=== PATIENT | female | born 1940 | race Caucasian/White ===

== ENCOUNTER 2023-11-06 17:19 | Emergency (ER) | payer MEDICARE, SELFPAY ==
[2023-11-06 17:30] VITALS: BP 162/67; PULSE 88; RESP 16; TEMP 36.8; O2SAT 94
[2023-11-06 17:44] LABS: Bilirubin Negative (Negative); Blood Large (Negative); Clarity Cloudy (Clear); Glucose Negative (Negative); Ketones Negative (Negative); Leukocyte Esterase Moderate (Negative); Nitrite Negative (Negative); Specific Gravity >= 1.030 (1.005-1.025); Urobilinogen 0.2 mg/dL (Up to 0.2); pH 5.5 (5-8)
[2023-11-06 17:55] LABS: C & S Indicated? Yes; RBC >50 HPF (0-2); WBC >50 HPF (0-5)
--- OUTSIDE RECORDS SUMMARY | 2023-11-06 18:31 | XMS_ITS | Encounter Summary ---
Author Organization [facility] Address [address] [place] [address] Care Team Providers Care Video Game Script Writer Name Role Phone Anna Dejesus MD Primary Care Provider [phone] Encounter Details Date Type Department Care Team Description 09/11/2018 9:50 AM EDT - 09/11/2018 11:59 PM EDT Hospital Encounter Lab Draw Station [address] [place] [address] Anna Dejesus MD [address] [place] [address] Pure hypercholesterolemi a; Gastro-esophageal reflux disease without esophagitis; Low back pain with right-sided sciatica; Malignant neoplasm of female breast (HCC) Discharge Disposition: Home or Self Care Social History Tobacco Use Types Packs/Day Years Used Date Smoking Tobacco: Never Assessed Sex and Gender Information Value Date Recorded Sex Assigned at Female 05/25/2023 9:21 AM EST Gender Identity Female 05/25/2023 5:41 PM EST Sexual Orientation Not on file Job Start Date Occupation Industry Not on file Not on file Not on file documented as of this encounter Medications at Time of Discharge Medication Sig Dispensed Refills Start Date End Date latanoprost (XALATAN) 0.005 % ophthalmic solution INT 1 DROP IN OU HS 6 10/20/2016 documented as of this encounter Plan of Treatment Upcoming Encounters Date Type Department Care Team Description 01/11/2024 12:45 PM EDT Appointment Department of Radiology and Imaging Services [address] [place], [place] [phone] Dinorah Mas PA-C [address] [place] [phone] 01/18/2024 1:30 PM EDT Appointment Department of Radiology and Imaging Services [address] [place] [address] Dinorah Mas PA-C [address] [place] [phone] 01/18/2024 2:20 PM EDT Office Visit [facility] Cons[facility] [address] [place] [phone] Dinorah Mas PA-C [address] [place] [phone] Rasta Borjas MD [address] [place] [id number] documented as of this encounter Procedures Procedure Name Priority Date/Time Associated Diagnosis Comments COMPREHENSIVE METABOLIC PANEL/FASTING Routine 09/11/2018 8:10 AM EDT Pure hypercholesterolem ia Gastro-esophageal reflux disease without esophagitis Low back pain with right-sided sciatica Malignant neoplasm of female breast (HCC) LIPID PANEL WITH REFLEX TO DIRECT LDL Routine 09/11/2018 8:10 AM EDT Pure hypercholesterolem ia Gastro-esophageal reflux disease without esophagitis Low back pain with right-sided sciatica Malignant neoplasm of female breast (HCC) documented in this encounter Results * (ABNORMAL) Lipid Panel with Reflex to Direct LDL (09/11/2018 8:10 AM EDT) Triglycerides 161(H) <150 mg/dL 09/11/2018 2:20 PM EDT [facility] Cholesterol 213(H) 0 - 200 mg/dL 09/11/2018 2:20 PM EDT [facility] HDL 55 33 - 92 mg/dL 09/11/2018 2:20 PM EDT [facility] LDL (Calculated) 126 50 - 130 mg/dL 09/11/2018 2:20 PM EDT [facility] Comment: Performed at [address] [address] Yusuf Wilson Jr, MD Director KELLIESC [id number] ??CL 0623 09/11/2018 8:10 AM EDT 09/11/2018 9:56 AM EDT Anna Dejesus MD LAB BLOOD ORDERABLES [facility] [address] [facility] (CLIA #[id number]) (CL-0623) [place] [address] * (ABNORMAL) Comprehensive Metabolic Panel/Fasting (09/11/2018 8:10 AM EDT) BUN 19(H) 7 - 17 mg/dL 09/11/2018 2:20 PM EDT [facility] Creatinine, Blood 0.7 0.5 - 1.0 mg/dL 09/11/2018 2:20 PM EDT [facility] Glomerular Filtration Rate, Estimated >60.0 >60.0 09/11/2018 2:20 PM EDT [facility] Comment:MDRD in mL/min/1.73 sq meters. For Americans, multiply by 1.21. Sodium 139 135 - 145 mmol/L 09/11/2018 2:20 PM EDT [facility] Potassium 4.3 3.5 - 5.1 mmol/L 09/11/2018 2:20 PM EDT [facility] Chloride 106 98 - 107 mmol/L 09/11/2018 2:20 PM EDT [facility] Carbon dioxide 31 24 - 32 mmol/L 09/11/2018 2:20 PM EDT [facility] Glucose, Fasting 96 70 - 99 mg/dL 09/11/2018 2:20 PM EDT [facility] Calcium 9.5 8.4 - 10.2 mg/dL 09/11/2018 2:20 PM EDT [facility] Total Protein 6.0(L) 6.4 - 8.5 g/dL 09/11/2018 2:20 PM EDT [facility] Albumin 4.3 3.5 - 5.0 g/dL 09/11/2018 2:20 PM EDT [facility] Alkaline Phosphatase 61 34 - 104 U/L 09/11/2018 2:20 PM EDT [facility] AST (SGOT) 18 5 - 40 U/L 09/11/2018 2:20 PM EDT [facility] ALT (SGPT) 16 7 - 52 U/L 09/11/2018 2:20 PM EDT [facility] Total Bilirubin 0.5 0.3 - 1.0 mg/dL 09/11/2018 2:20 PM EDT [facility] Comment: [place] [address] Yusuf Wilson Jr, MD Director IA [id number] ??CL 0623 09/11/2018 8:10 AM EDT 09/11/2018 9:56 AM EDT Anna Dejesus MD LAB BLOOD ORDERABLES [facility] [address] [facility] (CLIA #[id number]) (CL-[id number]) [place] [address] documented in this encounter Visit Diagnoses Diagnosis Pure hypercholesterolemia Gastro-esophageal reflux disease without esophagitis Low back pain with right-sided sciatica Malignant neoplasm of female breast (HCC) Malignant neoplasm of breast (female), unspecified site documented in this encounter Care Teams Video Game Script Writer Relationship Specialty Start Date End Date Anna Dejesus MD PCP - General Internal Medicine 05/22/15 documented as of this encounter
--- OUTSIDE RECORDS SUMMARY | 2023-11-06 18:31 | XMS_ITS | Encounter Summary ---
Author Organization [facility] Address [address] [place] [address] Care Team Providers Care Roller Helper Name Role Phone Joaquin Ragland MD Primary Care Provider [phone] Reason for Visit * Preauthorization (Routine) - Pending Review Specialty Diagnoses / Procedures Referred By Contac t Referred To Contact Diagnoses Abnormal mammogram of left breast Procedures US Breast Scan Diagnostic Left Limited US Breast Screening Bilateral Joaquin Ragland MD [address] [place] [id number] Referral ID Status Reason Start Date Expiration Date V isits Requested Visits Authorized [id number] Pending Review 06/03/2023 06/02/2024 1 1 Encounter Details Date Type Department Care Team Description 06/06/2023 10:26 AM EST - 06/06/2023 11:59 PM EST Hospital Encounter Department of Radiology and Imaging Services [address] [place], [place] [phone] Joaquin Ragland MD [facility] [address] [place] [address] Discharge Disposition: Home or Self Care Social [...] 1 DROP IN OU HS 6 10/20/2016 omeprazole (PriLOSEC) 20 MG capsule 0 04/19/2023 documented as of this encounter Plan of Treatment Upcoming Encounters Date Type Department Care Team Description 01/11/2024 12:45 PM EDT Appointment Department of Radiology and Imaging Services [address] [place] [phone] Dinorah Mas PA-C [address] [place] [phone] 01/18/2024 1:30 PM EDT Appointment Department of Radiology and Imaging Services [address] [place] [phone] Dinorah Mas PA-C [address] [place] [phone] 01/18/2024 2:20 PM EDT Office Visit [facility] [address] [place] [phone] Dinorah Mas PA-C [address] [place] [phone] Rasta Borjas MD [address] [place] [phone] documented as of this encounter Procedures Procedure Name Priority Date/Time Associated Diagnosis Comments US BREAST SCAN DIAGNOSTIC LEFT LMT Routine 06/06/2023 11:50 AM EST Abnormal mammogram of left breast documented in this encounter Results * (ABNORMAL) US Breast Scan Diagnostic Left Limited (06/06/2023 11:50 AM EST) Anatomical Region Laterality Modality Breast Left Ultrasound 06/06/2023 12:1 2 PM EST Narrative 06/06/2023 12:27 PM EST Session: Separate. Examination: Limited focused ultrasound of the left breast. Indication: Abnormal MRI showing area of enhancement in the mid depth of left breast retroareolar region, at or near the site of parenchymal scar related to prior lumpectomy. Findings: No comparisons. Correlation made to bilateral breast MRI dated 05/28/2023. Limited focused ultrasound of the left breast retroareolar region, periareolar region as well as central part was performed. A linear skin incision is seen in the left periareolar region from prior lumpectomy. Just underneath this, a linear parenchymal scar with sharp posterior acoustic shadowing is seen in the left breast. However, at about 12 to 1:00 position in the periareolar region of left breast, an ill-defined oval-shaped hypoechoic nodular lesion some posterior shadowing is seen in the mid depth, which likely corresponds to MRI enhancement. This could also be part of the scar tissue or could be new adjacent nodularity. This needs further evaluation with ultrasound-guided core biopsy. No evidence of any suspicious or atypical lymph nodes in the left axillary region. Small benign lymph nodes noted with well-defined prominent central fatty notch. Conclusion: 1. A mildly suspicious hypoechoic lesion is seen in the mid depth of left breast at 12 to 1:00 position with posterior acoustic shadowing. 2. This could be part of post lumpectomy scar or a new/adjacent nodularity. Surgical consultation is recommended. Further evaluation with core biopsy is needed. 3. These findings were personally discussed with the patient at the end of this ultrasound study. NOTE: Patient has also been informed about results of this ultrasound study and follow-up, by a patient letter with 'plain language report'. BI-RADS Category 4: Suspicious findings. Biopsy should be considered. A Red message has been communicated to JOAQUIN RAGLAND via the PLAXD Result system on 06/06/2023 12:27 PM, Message ID [id number]. Report reviewed and signed by : Dr. Scooter Schrader MD on 06/06/2023 12:27 PM. Workstation Name - [id number] Joaquin Ragland MD IMG US ORDERABLES documented in this encounter Visit Diagnoses Not on filedocumented in this encounter Care Teams Roller Helper Relationship Specialty Start Date End Date Joaquin Ragland MD PCP - General Internal Medicine 05/22/15 documented as of this encounter
--- OUTSIDE RECORDS SUMMARY | 2023-11-06 18:31 | XMS_ITS | Data Portability ---
Author Organization [place] - [place] [facility], [id number] [place] Address [address] [place] [address] Assessment Encounter Date Assessment Date Assessment LastModified by Organization Details LastModified Time 07/11/2023 07/11/2023 Impression left otitis media. Plan continue oral meds for now including Z-Jose Cortisporin otic suspension for importance of fluids. Start Flonase 2 sprays each nostril daily. Tylenol as needed. Call if no improvement. rsafer Not available 10/08/2023 10:57:59 Plan of Treatment Reminders Order Date Submit Date Provider Last Modified By Organization Details Last Modified Time Details Appointments None recorded. Lab None recorded. Referral None recorded. Procedures None recorded. Surgeries None recorded. Imaging MRI, breast, bilateral, w/wo contrast - left breast pain, constant, chronic, scar from surgery, doesn't tolerate mammogram, usually gets MRI, has h/o left breast cancer 2023 024 [facility] (Department Of Radiology/Christine galen), [address] [place], [address], 4 16:55:22 electrocar diogram 2023 024 imuni In-Office Order, Internal Use Only DO Not Attach Compendium DO Not Attach Compendium, Do Not Delete/merge, [id number] 4 10:20:03 Medication Orders levofloxac in 250 mg tablet 2023 024 jose [facility]/Pharmacy #[id number], [address] [facility], [facility], [place], [address], 4 14:29:46 Zithromax Z-Jose 250 mg tablet 2023 024 AYAAN [facility]/Pharmacy #[id number], [address] [facility], [facility]/, [place], [address], 4 12:43:05 Flonase Allergy Relief 50 mcg/actuat ion nasal spray,susp ension 2023 024 rsafer [facility]/Pharmacy #[id number], [address] [facility], [facility]/, [place], [address], 4 13:05:16 Patient TargetsNo targets recorded. Patient Instructions Encounter Date Encounter Id Patient Instructions Last Modified By Organization Details Last Modified Time 04/29/2023 [id number] well visit, over 65: care instructions imuni Not available 04/29/2023 10:02:36 preventing falls : care instructions imuni Not available 04/29/2023 10:02:36 advance directiv es: care instructions imuni Not available 04/29/2023 10:02:36 To promote good health please follow these recommendations: Diet, Physical Activity and Healthy Weight: -Eat a diet low in trans and saturated fats and high in fiber, fruits and vegetables -Take 5669-4680 mg of calcium through diet and supplements -Engage in regular physical activity and weight bearing exercise -Aim to achieve and maintain ideal body mass index Tobacco and Alcohol Use: -Don't smoke or use other tobacco products -Avoid excessive alcohol intake Medications: -If you use any medications (prescriptions, aliz-crg-mcrzubh, supplements, herbal), always do so as directed by your health care provider -Avoid misuse of any substances in a manner that is not in accordance with appropriate use Safety: -Use seat belts whenever in the car -Use sunscreen regularly to reduce the risk of skin cancer -Test smoke detectors and CO detectors every 6 months -Remove loose rugs and use hand rails on steps and in bath Cognition: -Being intellectually engaged may benefit the brain. Lots of activities can keep your mind active. For example, read books and magazines. Play games. Take or teach a class. Learn a new skill or hobby. Work or volunteer. -People who engage in meaningful activities, like volunteering or hobbies, say they feel happier and healthier. Vaccinations: -Get your yearly influenza vaccine and follow all immunization recommendations outlined in your personal wellness plan. imuni Not available 04/22/2023 16:54:11 2023 [id number] zpack for ear infection tylenol for discomfort use wax softening - murine drops - after completing abx follow-up with office for wax removal after [email or web address] Not available 07/12/2023 16:00:39 Reason for Referral Breast Surgery Referral for Breast lump Referring Physician: Joaquin Ragland, Internal Medicine, Encounter Date: 06/07/2023 Results Created Date Observation Date Name Description Value Unit Range Abnormal Flag LastModifiedBy Organization Detail LastModifiedTime 04/27/19 24 04/28/2023 LIPID PANEL WITH REFLE X TO DIREC T LDL cholesterol, total 207 mg/dL <200 high Not Available [facility] [address], [address], 04/28/2023 22:33:34 04/27/19 24 04/28/2023 LIPID PANEL WITH REFLE X TO DIREC T LDL HDL cholesterol 61 mg/dL > or = 50 normal Not Available [facility] [address], [place], [address], 04/28/2023 22:33:34 04/27/19 24 04/28/2023 LIPID PANEL WITH REFLE X TO DIREC T LDL triglyceride s 167 mg/dL <150 high Not Available [facility] [address] [place], [address], 04/28/2023 22:33:34 04/27/19 24 04/28/2023 LIPID PANEL WITH REFLE X TO DIREC T LDL LDL-choleste rol 118 mg/dL _(rachel c) high Not Available [facility] [address], [place], [address], 04/28/2023 22:33:34 04/27/19 24 04/28/2023 LIPID PANEL WITH REFLE X TO DIREC T LDL chol/HDLC ratio 3.4 (calc ) <5.0 normal Not Available [facility] [address], [place], [address], 04/28/2023 22:33:34 04/27/19 24 04/28/2023 LIPID PANEL WITH REFLE X TO DIREC T LDL non HDL cholesterol 146 mg/dL _(rachel c) <130 high Not Available [facility] [address], [place], [address], 04/28/2023 22:33:34 04/27/19 24 04/28/2023 COMPR EHENS RODERICK METAB OLIC PANEL glucose 98 mg/dL 65-99 normal Not Available [facility] [address], [place], [address], 04/28/2023 22:33:35 04/27/19 24 04/28/2023 COMPR EHENS RODERICK METAB OLIC PANEL urea nitrogen (BUN) 13 mg/dL 7-25 normal Not Available [facility] [address], [place], [address], 04/28/2023 22:33:35 04/27/19 24 04/28/2023 COMPR EHENS RODERICK METAB OLIC PANEL creatinine 0.67 mg/dL 0.60-0 .95 normal Not Available [facility] [address], [place], [address], 04/28/2023 22:33:35 04/27/19 24 04/28/2023 COMPR EHENS RODERICK METAB OLIC PANEL eGFR 87 mL/mi n/1.7 3m2 > or = 60 normal Not Available [facility] [address], [place], [address], 04/28/2023 22:33:35 04/27/19 24 04/28/2023 COMPR EHENS RODERICK METAB OLIC PANEL BUN/creatini ne ratio SEE NOTE: (calc ) 6-22 Not Available [facility] [address], [place], [address], 04/28/2023 22:33:35 04/27/19 24 04/28/2023 COMPR EHENS RODERICK METAB OLIC PANEL sodium 140 mmol/ L 135-14 6 normal Not Available [facility] [address], [place], [address], 04/28/2023 22:33:35 04/27/19 24 04/28/2023 COMPR EHENS RODERICK METAB OLIC PANEL potassium 4.2 mmol/ L 3.5-5. 3 normal Not Available [facility] [address], [place], [address], 04/28/2023 22:33:35 04/27/19 24 04/28/2023 COMPR EHENS RODERICK METAB OLIC PANEL chloride 103 mmol/ L 98-110 normal Not Available [facility] [address], [place], [address], 04/28/2023 22:33:35 04/27/19 24 04/28/2023 COMPR EHENS RODERICK METAB OLIC PANEL carbon dioxide 27 mmol/ L 20-32 normal Not Available [facility] [address], [place], [address], 04/28/2023 22:33:35 04/27/19 24 04/28/2023 COMPR EHENS RODERICK METAB OLIC PANEL calcium 9.4 mg/dL 8.6-10 .4 normal Not Available [facility] [address], [place], [address], 04/28/2023 22:33:35 04/27/19 24 04/28/2023 COMPR EHENS RODERICK METAB OLIC PANEL protein, total 6.8 g/dL 6.1-8. 1 normal Not Available [facility] [address], [place], [address], 04/28/2023 22:33:35 04/27/19 24 04/28/2023 COMPR EHENS RODERICK METAB OLIC PANEL albumin 4.3 g/dL 3.6-5. 1 normal Not Available [facility] [address], [place], [address], 04/28/2023 22:33:35 04/27/19 24 04/28/2023 COMPR EHENS RODERICK METAB OLIC PANEL globulin 2.5 g/dL_ (calc ) 1.9-3. 7 normal Not Available [facility] [address], [place], [address], 04/28/2023 22:33:35 04/27/19 24 04/28/2023 COMPR EHENS RODERICK METAB OLIC PANEL albumin/glob ulin ratio 1.7 (calc ) 1.0-2. 5 normal Not Available [facility] [address], [place], [address], 04/28/2023 22:33:35 04/27/19 24 04/28/2023 COMPR EHENS RODERICK METAB OLIC PANEL bilirubin, total 0.4 mg/dL 0.2-1. 2 normal Not Available [facility] [address], [place], [address], 04/28/2023 22:33:35 04/27/19 24 04/28/2023 COMPR EHENS RODERICK METAB OLIC PANEL alkaline phosphatase 69 U/L 37-153 normal Not Available [facility] [address], [place], [address], 04/28/2023 22:33:35 04/27/19 24 04/28/2023 COMPR EHENS RODERICK METAB OLIC PANEL AST 15 U/L 10-35 normal Not Available [facility] [place] [facility] [address], [place], [address], 04/28/2023 22:33:35 04/27/19 24 04/28/2023 COMPR EHENS RODERICK METAB OLIC PANEL ALT 17 U/L 6-29 normal Not Available [facility] [place] [facility] [address], [place], [address], 04/28/2023 22:33:35 04/27/19 24 04/28/2023 URINA LYSIS , COMPL ETE W/REF CATALINO TO CULTU RE color YELLOW yellow normal Not Available [facility] [place] [facility] [address], [place], [address], 04/28/2023 22:33:36 04/27/19 24 04/28/2023 URINA LYSIS , COMPL ETE W/REF CATALINO TO CULTU RE appearance CLOUDY clear abnormal Not Available [facility] [place] [facility] [address], [place], [address], 04/28/2023 22:33:36 04/27/19 24 04/28/2023 URINA LYSIS , COMPL ETE W/REF CATALINO TO CULTU RE specific gravity 1.013 1.001- 1.035 normal Not Available [facility] [place] [facility] [address], [place], [address], 04/28/2023 22:33:36 04/27/19 24 04/28/2023 URINA LYSIS , COMPL ETE W/REF CATALINO TO CULTU RE pH 6.0 5.0-8. 0 normal Not Available [facility] [place] [facility] [address], [place], [address], 04/28/2023 22:33:36 04/27/19 24 04/28/2023 URINA LYSIS , COMPL ETE W/REF CATALINO TO CULTU RE glucose NEGATI VE negati ve normal Not Available [facility] [place] [facility] [address], [place], [address], 04/28/2023 22:33:36 04/27/19 24 04/28/2023 URINA LYSIS , COMPL ETE W/REF CATALINO TO CULTU RE bilirubin NEGATI VE negati ve normal Not Available [facility] [address], [place], [address], 04/28/2023 22:33:36 04/27/19 24 04/28/2023 URINA LYSIS , COMPL ETE W/REF CATALINO TO CULTU RE ketones NEGATI VE negati ve normal Not Available [facility] [place] [facility] [address], [place], [address], 04/28/2023 22:33:36 04/27/19 24 04/28/2023 URINA LYSIS , COMPL ETE W/REF CATALINO TO CULTU RE occult blood NEGATI VE negati ve normal Not Available [facility] [place] [facility] [address], [place], [address], 04/28/2023 22:33:36 04/27/19 24 04/28/2023 URINA LYSIS , COMPL ETE W/REF CATALINO TO CULTU RE protein NEGATI VE negati ve normal Not Available [facility] [place] [facility] [address], [place], [address], 04/28/2023 22:33:36 04/27/19 24 04/28/2023 URINA LYSIS , COMPL ETE W/REF CATALINO TO CULTU RE nitrite NEGATI VE negati ve normal Not Available [facility] [address], [place], [address], 04/28/2023 22:33:36 04/27/19 24 04/28/2023 URINA LYSIS , COMPL ETE W/REF CATALINO TO CULTU RE leukocyte esterase 3+ negati ve abnormal Not Available [facility] [place] [facility] [address], [place], [address], 04/28/2023 22:33:36 04/27/19 24 04/28/2023 URINA LYSIS , COMPL ETE W/REF CATALINO TO CULTU RE WBC 20-40 /hpf < or = 5 abnormal Not Available [facility] [place] [facility] [address], [place], [address], 04/28/2023 22:33:36 04/27/19 24 04/28/2023 URINA LYSIS , COMPL ETE W/REF CATALINO TO CULTU RE RBC NONE SEEN /hpf < or = 2 normal Not Available [facility] [place] [facility] [address], [place], [address], 04/28/2023 22:33:36 04/27/19 24 04/28/2023 URINA LYSIS , COMPL ETE W/REF CATALINO TO CULTU RE squamous epithelial cells 10-20 /hpf < or = 5 abnormal Not Available [facility] [place] [facility] [address], [place], [address], 04/28/2023 22:33:36 04/27/19 24 04/28/2023 URINA LYSIS , COMPL ETE W/REF CATALINO TO CULTU RE bacteria FEW /hpf none seen abnormal Not Available [facility] [place] [facility] [address], [place], [address], 04/28/2023 22:33:36 04/27/19 24 04/28/2023 URINA LYSIS , COMPL ETE W/REF CATALINO TO CULTU RE hyaline cast NONE SEEN /lpf none seen normal Not Available [facility] [place] [facility] [address] [place], [place], [address], 04/28/2023 22:33:36 04/27/19 24 04/28/2023 URINA LYSIS , COMPL ETE W/REF CATALINO TO CULTU RE note Not Available [facility] [place] [facility] [address] [place], [place], [address], 04/28/2023 22:33:36 04/27/19 24 04/28/2023 REFLE XIVE URINE CULTU RE reflexive urine culture Not Available [facility] [place] [facility] [address] [place], [place], [address], 04/28/2023 22:33:36 04/27/19 24 04/28/2023 CBC (INCL UDES DIFF/ PLT) white blood cell count 4.7 thous and/u L 3.8-10 .8 normal Not Available [facility] [place] [facility] [address] [place], [place], [address], 04/28/2023 22:33:36 04/27/19 24 04/28/2023 CBC (INCL UDES DIFF/ PLT) red blood cell count 4.97 lazaro on/uL 3.80-5 .10 normal Not Available [facility] [place] [facility] [address] [place], [place], [address], 04/28/2023 22:33:36 04/27/19 24 04/28/2023 CBC (INCL UDES DIFF/ PLT) hemoglobin 14.2 g/dL 11.7-1 5.5 normal Not Available [facility] [place] [facility] [address] [place], [place], [address], 04/28/2023 22:33:36 04/27/19 24 04/28/2023 CBC (INCL UDES DIFF/ PLT) hematocrit 42.2 % 35.0-4 5.0 normal Not Available [facility] [place] [facility] [address], [place], [address], 04/28/2023 22:33:36 04/27/19 24 04/28/2023 CBC (INCL UDES DIFF/ PLT) MCV 84.9 fL 80.0-1 00.0 normal Not Available [facility] [place] [facility] [address], [place], [address], 04/28/2023 22:33:36 04/27/19 24 04/28/2023 CBC (INCL UDES DIFF/ PLT) MCH 28.6 pg 27.0-3 3.0 normal Not Available [facility] [place] [facility] [address], [place], [address], 04/28/2023 22:33:36 04/27/19 24 04/28/2023 CBC (INCL UDES DIFF/ PLT) MCHC 33.6 g/dL 32.0-3 6.0 normal Not Available [facility] [place] [facility] [address], [place], [address], 04/28/2023 22:33:36 04/27/19 24 04/28/2023 CBC (INCL UDES DIFF/ PLT) RDW 12.8 % 11.0-1 5.0 normal Not Available [facility] [place] [facility] [address], [place], [address], 04/28/2023 22:33:36 04/27/19 24 04/28/2023 CBC (INCL UDES DIFF/ PLT) platelet count 308 thous and/u L 140-40 0 normal Not Available [facility] [place] [facility] [address], [place], [address], 04/28/2023 22:33:36 04/27/19 24 04/28/2023 CBC (INCL UDES DIFF/ PLT) MPV 10.2 fL 7.5-12 .5 normal Not Available [facility] [place] [facility] [address], [place], [address], 04/28/2023 22:33:36 04/27/19 24 04/28/2023 CBC (INCL UDES DIFF/ PLT) absolute neutrophils 1974 cells /uL 1500-7 800 normal Not Available [facility] [place] [facility] [address], [place], [address], 04/28/2023 22:33:36 04/27/19 24 04/28/2023 CBC (INCL UDES DIFF/ PLT) absolute lymphocytes 1810 cells /uL 850-39 00 normal Not Available [facility] [address], [place], [address], 04/28/2023 22:33:36 04/27/19 24 04/28/2023 CBC (INCL UDES DIFF/ PLT) absolute monocytes 494 cells /uL 200-95 0 normal Not Available [facility] [place] [facility] [address], [place], [address], 04/28/2023 22:33:36 04/27/19 24 04/28/2023 CBC (INCL UDES DIFF/ PLT) absolute eosinophils 343 cells /uL 15-500 normal Not Available [facility] [address], [place], [address], 04/28/2023 22:33:36 04/27/19 24 04/28/2023 CBC (INCL UDES DIFF/ PLT) absolute basophils 80 cells /uL 0-200 normal Not Available [facility] [address], [place], [address], 04/28/2023 22:33:36 04/27/19 24 04/28/2023 CBC (INCL UDES DIFF/ PLT) neutrophils 42 % normal Not Available [facility] [address], [place], [address], 04/28/2023 22:33:36 04/27/19 24 04/28/2023 CBC (INCL UDES DIFF/ PLT) lymphocytes 38.5 % normal Not Available [facility] [place] [facility] [address], [place], [address], 04/28/2023 22:33:36 04/27/19 24 04/28/2023 CBC (INCL UDES DIFF/ PLT) monocytes 10.5 % normal Not Available [facility] [place] [facility] [address], [place], [address], 04/28/2023 22:33:36 04/27/19 24 04/28/2023 CBC (INCL UDES DIFF/ PLT) eosinophils 7.3 % normal Not Available [facility] [place] [facility] [address], [place], [address], 04/28/2023 22:33:36 04/27/19 24 04/28/2023 CBC (INCL UDES DIFF/ PLT) basophils 1.7 % normal Not Available [facility] [place] [facility] [address], [place], [address], 04/28/2023 22:33:36 04/27/19 24 04/28/2023 CULTU RE, URINE , ROUTI NE culture, urine, routine SEE NOTE Not Available [facility] [place] [facility] [address], [place], [address], 04/28/2023 22:33:37 04/29/19 marli hernandez am No observ ation record ed. imuni In-Office Order Internal Use Only DO Not Attach Compendium DO Not Attach Compendium, Do Not Delete/merge, [id number] 04/29/2023 09:26:54 06/02/19 24 05/28/2023 MRI breas t bilat eral with and witho ut IV contr ast with CAD EXAM: MRI BREAST BILATE RAL WITH AND WITHOU T CONTRA ST IV CONTRA ST WITH CAD EXAM HISTOR Y: Ricardo phillips with a histor y of left breast cancer status post breast conser vation surger y. Ricardo phillips report s left breast pain as indica javed by the referr ing clinic simone's office . No recent mammog anival are availa ble. Encoun ter for other screen ing for malign ant neopla sm of breast ,Masto dynia COMPAR TERELL: Bilate ral breast MRI dated 022, 2019 perfor med at [facility] TECHNI QUE: Techni que: Sagitt al T1 and T2 weight ed images were obtain ed throug h each breast . DWI (B500- 1000) Axial T1-genesis ghted gradie nt echo sequen rodrigo were perfor med before and after admini strati on of gadoli nium in multip le phases and subtra cted images were obtain ed. Kineti cs analys is was perfor med using CAD stream softwa re. Multip lanar reform atted images were create d and analyz ed on a workst ation. CONTRA ST AGENT: 14 cc of intrav enous ratna can were admini stered withou t incide nt. FINDIN GS: There are scatte red fibrog landul ar densit ies (appro ximate ly 25-50% glandu lar). There is motion artifa ct result ing in misreg istrat ion on the postco ntrast sequen rodrigo. RIGHT BREAST : There is minima l backgr ound parenc hymal enhanc ement. No enhanc ing mass, randi ectura l distor tion, or suspic ious area of enhanc ement is identi fied with Type II or Type III kineti cs. The nipple and skin appear normal . There is no axilla ry adenop athy. LEFT BREAST : There is intima l backgr ound parenc hymal enhanc ement. Again seen are postsu rgical change s at 12:00. Compar ed to prior images , there appear s to be increa sed enhanc ement associ ated with the surgic al scar just above the nipple at 12:00. This enhanc ement measur es 1.4 x 1.7 cm. No associ ated suspic ious kineti cs. There is no other abnorm al enhanc ement within the left breast . The nipple and skin appear normal . There is no axilla ry adenop athy. The imaged portio ns of the chest and abdome n are unrema rkable . IMPRES GAYATRI: Right Breast : BI-RAD S Catego ry 2. Benign . No enhanc ing mass, randi ectura l distor tion, or suspic ious area of enhanc ement. Left Breast : BI-RAD S Catego ry 4. Suspic ious abnorm ality. Increa sed enhanc ement associ ated with the surgic al scar just above the nipple at 12:00 compar ed to prior availa ble images . Given the misreg istrat ion artifa ct on the postco ntrast sequen rodrigo, it is possib le this enhanc ement may be artifa ctual. RECOMM ENDATI ON: Consid er focuse d ultras ound of the upper left breast at 12:00 at the surgic al scar for furthe r evalua tion. Correl ation with mammog efren would be helpfu l. A follow -up bilate ral breast MRI is recomm ended in 6 months if no suspic ious abnorm ality is identi fied on ultras ound or mammog efren to correl ate with the enhanc ement. Report review ed and signed by : Dr. Eleno Pryor MD on 024 10:53 AM. Workst ation Name - [facility] 14cc dec 07 2025 [id number] ARRAY( [id number]) [facility] (Imaging) [address] [place] [address], [address], 06/02/2023 13:38:14 06/06/19 24 06/06/2023 US breas t scan diagn ostic left lmt Sessio n: Separa te. Examin ation: Limite d focuse d ultras ound of the left breast . Indica tion: Abnorm al MRI showin g area of enhanc ement in the mid depth of left breast retroa reolar region , at or near the site of parenc hymal scar relate d to prior lumpec zofia. Findin gs: No compar isons. Correl ation made to bilate ral breast MRI dated 024. Limite d focuse d ultras ound of the left breast retroa reolar region , periar eolar region as well as centra l part was perfor med. A linear skin incisi on is seen in the left periar eolar region from prior lumpec zofia. Just undern eath this, a linear parenc hymal scar with sharp material handling supervisor ior acoust ic shadow ing is seen in the left breast . Howeve r, at about 12 to 1:00 positi on in the periar eolar region of left breast , an ill-de fined oval-s haped hypoec hoic nodula r lesion some material handling supervisor ior shadow ing is seen in the mid depth, which likely corres ponds to MRI enhanc ement. This could also be part of the scar tissue or could be new adjace nt nodula rity. This needs furthe r evalua tion with ultras ound-g uided core biopsy . No eviden ce of any suspic ious or atypic al lymph nodes in the left axilla ry region . Small benign lymph nodes noted with well-d efined promin ent centra l fatty notch. Conclu gayatri: 1. A mildly suspic ious hypoec hoic lesion is seen in the mid depth of left breast at 12 to 1:00 positi on with material handling supervisor ior acoust ic shadow ing. 2. This could be part of post lumpec zofia scar or a new/ad jacent nodula rity. Surgic al consul tation is recomm ended. Furthe r evalua tion with core biopsy is needed . 3. These findin gs were person ally discus sed with the ricardo phillips at the end of this ultras ound study. NOTE: Ricardo phillips has also been inform ed about result s of this ultras ound study and follow -up, by a ricardo phillips letter with 'delroy sauceda ge report '. BI-RAD S Catego ry 4: Suspic ious findin gs. Biopsy should be consid ered. Sarah pratt has been commun icated to JOAQUIN RAGLAND via the [employer] system on 12:27 PM, [place] e [place] [id number]. Report review ed and signed by : Dr. David Schrader MD on 12:27 PM. Workst ation Name - [id number] [facility] (Imaging) [address] [facility], [place], [address], 06/07/2023 08:05:41 Result Notes None recorded. Problems Name Status Onset Date Resolution Date Notes Provider Name and Address Organization Details Recorded Time Glaucoma Active 023 Tawny Lafontain e null, [place] - [facility] 3 16:32:37 Cataract Active 023 Tawny Lafontain e null, [place] - [facility] 3 16:32:46 Gastroesophageal reflux disease Active 023 Tawny Lafontain e null, [place] - [facility] 3 16:32:56 Hypercholesterolemia Active 023 Tawny Lafontain e null, CT - [facility] 3 16:33:18 Acute urinary tract infection Active 024 Joaquin Ragland MD [address] [place] [address], [address] [place] [address], [phone], [place] [facility] 4 10:00:39 Caregiver stress syndrome Active 024 Joaquin Ragland MD [address] [place] [address], [address] [place] [address], [phone], [place] - [facility] 4 10:27:20 Malignant neoplasm of female breast Active 024 Joaquin Ragland MD [address] [place] [address], [address] [place] [address], [phone], [place] - [facility] 4 13:39:06 Mammography assessment (Category 4C) - high suspicion of malignancy Active 024 Joaquin Ragland MD [address] [place] [address], [address] [place] [address], [place], [phone], [place] [facility] 4 13:39:50 Breast lump Active 024 Joaquin Ragland MD [address] [place] [address], [address] [place] [address], [place], [phone], [place] - [facility] 4 08:06:07 Pain of ear Active 024 Joaquin Ragland MD [address] [place] [address], [address] [place] [address], [place], [phone], [place] - [facility] 4 16:32:39 Problem Notes None recorded. Procedures Surgical History Date Name Laterality Status Provider Name and Address Organization Details Recorded Time 04/29/19 24 Advance Care Planning Consultation completed Joaquin Ragland MD [address] [place] [address], [address] [place] [address], [phone], [place] - [facility] 04/22/2023 16:54:11 04/29/19 24 AWV - safety evaluation completed Joaquin Ragland MD [address] [place] [address], [phone], [place] - [facility] 04/22/2023 16:54:11 04/29/19 24 AWV - female prevention plan completed Joaquin Ragland MD [address] [place] [address], [address] [place] [address], [phone], [place] CT - [facility] 04/22/2023 16:54:11 04/29/19 22 Date of Last Mammogram completed Joaquin Ragland MD [address] [place] [address], [phone], [place] - [facility] 04/29/2023 09:50:49 08/25/19 17 Most Recent Bone Density completed Tawny shipley, [facility] - [facility] 02/17/2023 16:30:12 lumpectomy of breast completed Joaquin Ragland MD [address] [place] [address], [phone], [place] - [facility] 04/29/2023 09:45:30 Imaging Results Imaging Date Name Status LastModified by Organization Details LastModified Time 04/29/2023 electrocardiogram completed imuni In-Offi ce Order Internal Use Only DO Not Attach Compendium DO Not Attach Compendium, Do Not Delete/merge, [id number] 04/29/2023 09:26:54 05/28/2023 MRI breast bilateral with and without IV contrast with CAD completed [facility] (Imaging) [address] [place], [address], 06/02/2023 13:38:14 06/06/2023 US breast scan diagnostic left lmt completed [facility] ([facility]) [address] [place], [address], 06/07/2023 08:05:41 Procedure Notes None recorded. Medical Equipment None Reported. Allergies Allergen ID Allergen Name Allergen Category Reaction Reaction Severity Criticality Documentation Date Start Date Code Code System Note Provider Name and Address Organization Details Recorded Time [id number] penicilli n V Not available Not available Not available Not available 04/29/2023 7984 RxNorm Karena [facility], [place] - [facility] 09:20:02 Medications Name Sig Start Date Stop Date Status Note LastModified by Organization Details LastModified Time celecoxib 200 mg capsule TAKE 1 TAB BY MOUTH TWICE A DAY.. TAKE WITH FOOD active Not Available Not Available No t Available latanoprost 0.005 % eye drops INT 1 DROP IN OU HS 2016 active Not Available Not Available Not Avai lable doxycycline hyclate 100 mg capsule TAKE 1 CAPSULE BY MOUTH TWICE A DAY FOR 10 DAYS active Not Available Not Available No t Available Zithromax Z-Jose 250 mg tablet TAKE 2 TABLETS (500 MG) BY ORAL ROUTE ONCE DAILY FOR 1 DAY THEN 1 TABLET (250 MG) BY ORAL ROUTE ONCE DAILY FOR 4 DAYS 07/10 completed Not Available Not Available Not Available acetaminoph en 300 mg-codeine 30 mg tablet TAKE 1 TABLET BY MOUTH EVERY 6 HOURS NEEDED FOR PAIN active Not Available Not Available No t Available levofloxaci n 250 mg tablet TAKE 1 TABLET BY MOUTH EVERY DAY 07/05 completed Not Available Not Available Not Available ofloxacin 0.3 % ear drops PLACE 5 DROPS INTO LEFT EAR TWICE A DAY FOR 10 DAYS active Not Available Not Available No t Available omeprazole 20 mg capsule,del ayed release TAKE 1 CAPSULE BY MOUTH EVERY DAY active Not Available Not Available No t Available levofloxaci n 500 mg tablet TAKE 1 TABLET BY MOUTH EVERY DAY active Not Available Not Available No t Available neomycin-po lymyxin-hyd rocort 3.5 mg-10,000 unit/mL-1 % ear drops,susp INSTILL 4 DROPS INTO AFFECTED EAR(S) 3 TIMES A DAY active Not Available Not Available No t Available memantine 10 mg tablet active Not Available Not Available Not Available Flonase Allergy Relief 50 mcg/actuati on nasal spray,suspe nsion [facility] 2 sprays every day by intranasa l route. 2023 active Not Available Not Available Not Avai lable Vitals Date Recorded Body height Body mass index (BMI) Body weight Respiratory rate Heart rate Oxygen saturation Oxygen saturation in Arterial blood by Pulse oximetry Body temperature Provider Name and Address Organization Details Last Updated DateTime 4 158.12 cm 23.8 kg/m2 16206.6 g 17 /min 81 /min 98 % 98 % 97.6 [degF] Karena Phoenix [facility] 4 09:19:36 Date Recorded Body height Body mass index (BMI) Body weight Respiratory rate Heart rate Oxygen saturation Oxygen saturation in Arterial blood by Pulse oximetry Body temperature Systolic blood pressure Diastolic blood pressure Provider Name and Address Organization Details Last Updated DateTime 4 158.12 cm 24.7 kg/m2 95488.5 6 g 17 /min 91 /min 96 % 96 % 98.1 [degF] 114 mm[Hg] 70 mm[Hg] Karena Phoenix [facility] 4 14:30:36 Date Recorded Body height Body mass index (BMI) Body weight Heart rate Oxygen saturation Oxygen saturation in Arterial blood by Pulse oximetry Provider Name and Address Organization Details Last Updated DateTime 4 158.12 cm 24.7 kg/m2 72727.5 6 g 78 /min 98 % 98 % Tawny pratt [facility] 4 12:42:04 Date Recorded Systolic blood pressure Diastolic blood pressure Provider Name and Address Organization Details Last Updated DateTime 07/11/2023 140 mm[Hg] 84 mm[Hg] Yordy Waters MD [address] [place] [address], [address] Floor, [place], [address], CT - [facility] 07/11/2023 12:51:53 Social History Question Answer Notes LastModified by Organizat ion Details LastModified Time Tobacco Smoking Status Never Smoker Joaquin Ragland MD [address] [facility], [address], [place], [address], [place] - [facility] 04/29/2023 09:43:56 Do You Have An Advance Directive? Yes Information not available 04/29/2023 What Is Your Level Of Alcohol Consumption? None Information not available 04/29/2023 Are You Blind Or Do You Have Difficulty Seeing? No Information not available 04/29/2023 Are You A Caregiver? Yes Information not available 04/29/2023 Are You Currently Employed? No Information not available 04/29/2023 Are You Deaf Or Do You Have Serious Difficulty Hearing? No Information not available 04/29/2023 What Type Of Diet Are You Following? REGULAR Information not available 04/29/2023 What Is Your Relationship Status? Information not available 04/29/2023 Sex: Unknown Functional Status Question Answer Note LastModified by Organizat ion Details LastModified Time Do you have difficulty walking or climbing stairs? No Information not available 04/29/2023 Do you have transportation difficulties? No Information not available 04/29/2023 Are you able to walk? YESWOREST Information not available 04/29/2023 Do you have difficulty doing errands alone? No Information not available 04/29/2023 Are you able to care for yourself? Yes Information n ot available 04/29/2023 Do you have difficulty dressing or bathing? No Information not available 04/29/2023 What is your exercise level? Occasional Information not available 04/29/2023 Mental Status Question Answer Note LastModified by Organization D etails LastModified Time Do you have difficulty concentrating, remembering or making decisions? No Information no t available 04/29/2023 Family History Nothing Reported. Medical History No medical history recorded. Gynecological History Statement/Question Response Date of Last Mammogram 04/29/2021 Most Recent Bone Density 08/24/2016 Obstetrics History GPAL:G 0 P 0 0 0 0 Immunizations Vaccine Type Date Status Provider Name and Address Organization Details Recorded Time pneumococcal polysaccharide PPV23 04/02/2014 completed Karena Hardrick null, CT - [facility] 04/29/2023 09:15:59 zoster recombinant 03/05/2015 completed Karena Hardrick null, CT - [facility] 04/29/2023 09:15:59 Influenza, adjuvanted, trivalent, PF 01/19/2017 completed Karena Hardrick null, CT - [facility] 04/29/2023 09:15:59 Influenza, MDCK, quadrivalent, PF 01/25/2022 completed Karena Hardrick null, CT - [facility] 04/29/2023 09:15:59 zoster recombinant 12/31/2019 completed Karena Hardrick null, CT - CT [facility] 04/29/2023 09:15:59 zoster recombinant 02/29/2020 completed Karena Hardrick null, CT - CT [facility] 04/29/2023 09:15:59 Influenza, adjuvanted, quadrivalent, PF 01/18/2023 completed Karena Hardrick null, CT - CT [facility] 04/29/2023 09:15:59 COVID-19, mRNA, LNP-S, PF, 100 mcg/0.5mL dose or 50 mcg/0.25mL dose 07/02/2020 completed Karena Hardrick null, CT - CT [facility] 04/29/2023 09:15:59 COVID-19, mRNA, LNP-S, PF, 100 mcg/0.5mL dose or 50 mcg/0.25mL dose 04/07/2021 completed Karena Hardrick null, CT - CT [facility] 04/29/2023 09:15:59 Pneumococcal conjugate PCV 13 11/23/2018 completed Karena Valdesrick null, CT - CT [facility] 04/29/2023 09:15:59 zoster live 06/27/2015 completed Karena Valdesrick null, CT - CT [facility] 04/29/2023 09:15:59 Influenza, split virus, trivalent, PF 04/30/2016 completed Karena Phoenix null, [facility] - [facility] 04/29/2023 09:15:59 Influenza, split virus, trivalent, PF 12/31/2019 completed Karena Phoenix null, CT - [facility] 04/29/2023 09:15:59 Past Encounters Encounter ID Performer Location Encounter Start Date Encounter Closed Date Diagnosis/Indication Diagnosis SNOMED-CT Code [id number] Joaquin Ragland MD [facility]I M[facility] [place] [address] 04/29/2023 09:07:54 04/29/2023 10:09:28 Adult health examination 318086349 Screening for malignant neoplasm of breast 799316243 Screening for cardiovascular system disease 389603464 Gastroesop hageal reflux disease 244903608 Hypercholesterolemia 136 80027 Glaucoma 52889412 Acute urin adrián tract infection 824503188 Body mass index 20-24 - normal 234226535 Caregiver stress syndrome 675982605 [id number] Maria Dolores Castillo MD [facility] [place] [address] 2023 13:55:34 2023 15:32:56 Acute left otitis media 192587138 [id number] Yordy Waters MD [facility] M[facility] [place] [address] 07/11/2023 12:37:44 07/11/2023 13:35:25 Acute left otitis media 352807886 Health Concerns Section Related Observation LastModified by Organization Detai ls LastModified Time None Recorded Concern Status LastModified by Organization Details LastModified Time None Recorded Advance Directives Directive Y: Payers Encounter Date Sequence Insurance Name Policy Number Policy Otto Covered Member ID Otto Member ID Guarantor Name 04/29/2023 1 [employer] (MEDICARE REPLACEMENT/A DVANTAGE - PPO) Joyce Flanagan [id number] Joyce Flanagan 2023 1 [employer] (MEDICARE REPLACEMENT/A DVANTAGE - PPO) Joyce Flanagan [id number] Joyce Flanagan 07/11/2023 1 [employer] (MEDICARE REPLACEMENT/A DVANTAGE - PPO) Joyce Flanagan [id number] Joyce Flanagan Notes Date Note Type Note Provider Name and Address Organization Details Recorded Time 04/29/2023 text/html HPI Notes: Medic are Annual Wellness Visit Health Risk Assessment Reported by patient. Diet and Nutrition: healthy diet; no dental changes; discussed portion control; discussed diet improvement; discussed maintaining calcium balance Medication Review: has medications at home and can afford medications; taking medications as prescribed and directed Physical Activity: exercises on a regular basis; good physical condition Current level of pain Mild pain: 04/20 to 05/21 behavioral history denies use of tobacco or any other nicotine delivery product (i.e., e-cigarette, vaping or chewing tobacco) in past 12 months; denies alcohol use or practices limited (social only) alcohol use; denies drug use, including marijuana, cocaine or crack, heroin, methamphetamine (crystal meth), hallucinogens, ecstasy/MDMA Depression Risk: Assessed by PHQ 2/9, see results Orientation: no disorientation to time; no disorientation to date; no disorientation to place Concentration and Memory: no memory lapses or loss Speech/Motor difficulties: no difficulty expressing formulated concepts Hearing: no loss of hearing Vision: no vision problems Activities of Daily Living: able to bathe with limited or no assistance; able to contol urination and bowels; able to dress with limited or no assistance; able to groom with limited or no assistance; able to feed self with limited or no assistance; able to get out of chair or bed with limited or no assistance; able to toilet with limited or no assistance Instrumental Activities of Daily Living: able to do house work with limited or no assistance; able to grocery shop with limited or no assistance; able to manage medications with limited or no assistance; able to manage money with limited or no assistance; able to prepare meals with limited or no assistance; able to use the phone with limited or no assistance Falls Risk Assessment: Assessed by SALTY Fall Risk, see result Home Safety: use of seatbelts; no vision or hearing loss while driving; no fire arms; has hand bars in the bathroom/shower; good lighting in the home He feels well just very stressed lately due to her 's memory loss. She stays physically active and busy. She did notice increased frequency and urgency lately and her urine had a lot og WBC. The rest of her labs were fine. She still has left breast pain since she had surgery for breast cancer several years ago. She received the flu shot but doesn't want to Covid vaccine anymore. Joaquin Ragland MD [address] [place] [address], [address] [place] [address], [phone], [facility] 04/29/2023 10:29:11 2023 text/html HPI Notes: 82 yo female presents with c/o L ear pain. Pt states ear pain started 2 days ago. Ear feels blocked - cannot hear well out of it. Ear was itchy, pt tried to clean it with a q tip and she used aleve 2 days prior. Pain radiates down to left neck to superficial cervical lymph node. Pt took a decongestant last night with no relief. Maria Dolores Castillo MD [address] [place] [address], [phone], [facility] 07/12/2023 16:01:01 07/11/2023 text/html HPI Notes: Chong goodson is an 83-year-old female here to be complaining of ongoing left ear ache. She was seen a couple of days ago by Dr. Castillo and was prescribed oral azithromycin which does not seem to have helped thus far after taking it for 3 days. An Rx was called in for Cortisporin otic suspension without much help so far. She denies any fever or chills. She denies any pressure congestion sensation in her left ear. Also d there is no difficulty swallowing. Denies any sore throat. No sinus discomfort. Ecreased hearing. Yordy Waters MD [address] [place] [address], [address] [place] [address], [place], [phone], [facility] 10/08/2023 10:58:13 OBGyn Episode No OBEpisode recorded.
--- OUTSIDE RECORDS SUMMARY | 2023-11-06 18:31 | XMS_ITS ---
Author Name [facility] Organization Unknown History of Medication Use Medication Directions Dispensed Refills Start Date End Date Stat nvsnchwg-pxesapmau-c ydrocort 3.5 mg-10,000 unit/mL-1 % ear drops,susp INSTILL 4 DROPS INTO AFFECTED EAR(S) 3 TIMES A DAY 10/10/2023 active omeprazole 20 mg capsule,delayed release TAKE 1 CAPSULE BY MOUTH EVERY DAY 10/10/2023 active celecoxib 200 mg capsule TAKE 1 TAB BY MOUTH TWICE A DAY.. TAKE WITH FOOD 10/10/2023 active Zithromax Z-Jose 250 mg tablet TAKE 2 TABLETS (500 MG) BY ORAL ROUTE ONCE DAILY FOR 1 DAY THEN 1 TABLET (250 MG) BY ORAL ROUTE ONCE DAILY FOR 4 DAYS 10/10/2023 completed latanoprost 0.005 % eye drops INT 1 DROP IN OU HS 10/10/2023 active levofloxacin 500 mg tablet TAKE 1 TABLET BY MOUTH EVERY DAY 10/10/2023 active Flonase Allergy Relief 50 mcg/actuation nasal spray,suspension [facility] 2 sprays every day by intranasal route. 10/10/2023 active Flonase Allergy Relief 50 mcg/actuation nasal spray,suspension 10/10/2023 active ofloxacin 0.3 % ear drops PLACE 5 DROPS INTO LEFT EAR TWICE A DAY FOR 10 DAYS 10/10/2023 active levofloxacin 250 mg tablet TAKE 1 TABLET BY MOUTH EVERY DAY 10/10/2023 completed acetaminophen 300 mg-codeine 30 mg tablet TAKE 1 TABLET BY MOUTH EVERY 6 HOURS NEEDED FOR PAIN 10/10/2023 active doxycycline hyclate 100 mg capsule TAKE 1 CAPSULE BY MOUTH TWICE A DAY FOR 10 DAYS 10/10/2023 active [place]-3 Fatty Acids (FISH OIL PO) Take by mouth. 10/09/2023 active omeprazole (PriLOSEC) 20 MG capsule 06/19/2023 active latanoprost (XALATAN) 0.005 % ophthalmic solution INT 1 DROP IN OU HS 06/13/2023 active Problems Problem Status Onset Date Problem Type Date of Resolution Source Hypercholesterolemia active [address] [facility] Mammography assessment (Category 4C) - high suspicion of malignancy active 2023-05-13 [address] [facility] Gastroesophageal reflux disease active 9 ProblemAct [facility] Cataract active 9 ProblemAct [facility] Acute urinary tract infection active 2023-04-11 9 ProblemAct [facility] Breast lump active 2023-05-13 7 ProblemAct [facility] Glaucoma active 9 ProblemAct [facility] Caregiver stress syndrome active 2023-04-11 9 Problem[address] [facility] active 8 ProblemAct [facility] active EncounterDiagnosisAct [facility]AN active 8 ProblemAct [facility] active 8 ProblemAct [facility] Pain of ear active 2023-06-11 9 ProblemAct [facility] Malignant neoplasm of female breast active 2023-05-13 2 ProblemAct [facility] Immunizations Vaccine Date Source Lot Number Status Seasonal trivalent influenza vaccine, adjuvanted, preservative free 01/19/2017 [facility]_T[facility] [id number] co mpleted influenza, seasonal vaccine, quadrivalent, adjuvanted, 0.5 mL dose, preservative free 01/18/2023 [facility]_T[facility] [id number] completed zoster vaccine subunit 12/31/2019 [facility] [id number] co mpleted influenza, seasonal, injecta ble, preservative free 04/30/2016 [facility] [id number] completed SARS-COV-2 (COVID-19) vaccin e, mRNA, spike protein, LNP, preservative free, 100 mcg/0.5mL dose 07/02/2020 [facility] [id number] completed zoster vaccine subunit 03/05/2015 CTHONEY co mpleted zoster vaccine, live 06/27/2015 [facility] [id number] comp leted pneumococcal polysaccharide vaccine, 23 valent 04/02/2014 MARIANN completed Influenza, injectable, Madin Woolrich Canine Kidney, preservative free, quadrivalent 01/25/2022 [facility] [id number] completed pneumococcal conjugate vaccine, 13 valent 11/23/2018 [facility]AK[facility] WAITE [id number] completed influenza, seasonal, injecta ble, preservative free 12/31/2019 [facility] 297744 completed SARS-COV-2 (COVID-19) vaccin e, mRNA, spike protein, LNP, preservative free, 100 mcg/0.5mL dose 04/07/2021 CTHONEY [id number] completed zoster vaccine subunit 02/29/2020 [facility] [id number] co mpleted Assessment and Plan ID Update Date Source Alert Text [facility]-[id number] 10/07/2023 [facility] Date: [id number]:08:37.000-04 :00eventType: Outpatient Registration [facility]-[id number] 07/13/2023 [facility] Date: 3661-39-95S43:00:00.000-04 :00eventType: Outpatient Registration [id number] 06/17/2023 [facility] diagnosisCode: N63.21diagnosisCodeText: Unspecified lump in the left breast, upper outer quadrantdiagnosisDescripti on: Unspecified lump in the left breast, upper outer quadrantDate: [id number]:07:07.000-05 :00eventType: Outpatient Registration [facility]-[id number] 06/17/2023 [facility] diagnosisCode: N63.21diagnosisCodeText: Unspecified lump in the left breast, upper outer quadrantdiagnosisDescripti on: Unspecified lump in the left breast, upper outer quadrantDate: 6596-04-29P87:48:45.000-05 :00eventType: Outpatient Registration [id number] 06/17/2023 [facility] diagnosisCode: R92.8diagnosisCodeText: Other abnormal and inconclusive findings on diagnostic imaging of breastdiagnosisDescription : Other abnormal and inconclusive findings on diagnostic imaging of breastDate: [id number]:48:19.000-05 :00eventType: Outpatient Registration [id number] 06/06/2023 [facility] Date: 7681-07-92S53:26:30.000-05 :00eventType: Outpatient Registration [id number] 05/28/2023 [facility] diagnosisCode: Z12.39diagnosisCodeText: Encounter for other screening for malignant neoplasm of breastdiagnosisDescription : Encounter for other screening for malignant neoplasm of breastDate: [id number]:32:40.000-05 :00eventType: Outpatient Registration [facility]- 04/11/2023 [facility]- 04/11/2023 [facility]
--- OUTSIDE RECORDS SUMMARY | 2023-11-06 18:31 | XMS_ITS | Patient Health Record ---
Author Organization [email or web address]. Care Team Providers Care Technology And Engineering Teacher Name Role Phone Yordy Jasmine [facility] [phone] ENCOUNTERS from 1940 to 2023-11-06 Encounter Location Date Provider Diagnosis [address] [place] [address] May, Yordy Jasmine COVID-19 vaccine administered Z23 and Encounter for immunization Z23 IMMUNIZATIONS Vaccine Route Administration Date Status zzModerna Monovalent 12y+ CO VID-19 Vaccine IM Intramuscular May 26, 2020 Administered SOCIAL HISTORY Sex Assigned At : Social History Observation Description Sex Assigned At Unknown REASON FOR REFERRAL No Information VITAL SIGNS from 1940 to 2023-11-06 Weight 136 lbs May, Height 63 in May, Heart Rate 60 /min May, BMI 24.09 kg/m2 May, Height-cm 160.02 cm May, Weight-kg 61.69 kg May, Blood pressure systolic 132 mm Hg May, Blood pressure diastolic 80 mm Hg May, REASON FOR VISIT No Information MENTAL STATUS No Information ASSESSMENTS Encounter Date Diagnosis Assessment Notes Treatment Notes Treatment Clinical Notes May, COVID-19 vaccine administered (ICD-10 - Z23) May, Encounter for immunization (ICD-10 - Z23) PLAN OF TREATMENT No Information Insurance Providers Payer Name Payer Address Payer Phone Insured Name Patient Relationship to Insured Coverage Start Date Coverage End Date Subscriber Number Group Number [employer] OF [place] [address] [facility] [id number] [place],Clarke rriet Self - patient is the insured [id number]
--- OUTSIDE RECORDS SUMMARY | 2023-11-06 18:31 | XMS_ITS | Encounter Summary ---
Author Organization [facility] Address [address] [place] [address] Care Team Providers Care Computer Forensic Examiner Name Role Phone Unavailable Primary Care Provider Unavailabl e Encounter Details Date Type Department Care Team Description 06/01/2002 12:10 PM EST - 06/01/2002 3:13 PM EST Hospital Encounter [facility] [address] [place] [phone] Vinod Arthur MD [address] [place] [address] Social History Tobacco Use Types Packs/Day Years Used Date Smoking Tobacco: Never Assessed Sex and Gender Information Value Date Recorded Sex Assigned at Female 05/25/2023 9:21 AM EST Gender Identity Female 05/25/2023 5:41 PM EST Sexual Orientation Not on file Job Start Date Occupation Industry Not on file Not on file Not on file documented as of this encounter Plan of Treatment Upcoming Encounters Date Type Department Care Team Description 01/11/2024 12:45 PM EDT Appointment [facility] [address] [place] [phone] Dinorah Mas PA-C [address] [place] [address] 01/18/2024 1:30 PM EDT Appointment Department of [facility] [address] [place] [address]368 Dinorah Mas PA-C [address] [place] [address] 01/18/2024 2:20 PM EDT Office Visit [facility] [address] [place] [address] [phone] Dinorah Mas PA-C [address] [place] [phone] Rasta Borjas MD [address] [place] [phone] documented as of this encounter Visit Diagnoses Not on filedocumented in this encounter
--- OUTSIDE RECORDS SUMMARY | 2023-11-06 18:31 | XMS_ITS | Encounter Summary ---
Author Organization [facility] Address [address] [place] [address] Care Team Providers Care Home Security Professional Name Role Phone Anna Dejesus MD Primary Care Provider [phone] Encounter Details Date Type Department Care Team Description 10/07/2023 Travel Social History Tobacco Use Types Packs/Day Years Used Date Smoking Tobacco: Never Smokeless Tobacco: Never Alcohol Use Standard Drinks/Week Comments Never 0 (1 standard drink = 0.6 oz pur e alcohol) Sex and Gender Information Value Date Recorded [...] Appointment Department of Radiology [facility] Services [address] [place] [phone] Dinorah Mas PA-C [address] [place] [address] 01/18/2024 1:30 PM EDT Appointment Department of [facility] [address] [place] [address] Dinorah Mas PA-C [address] [place] [address] [phone] 01/18/2024 2:20 PM EDT Office Visit [facility] [address] [place] [address] Dinorah Mas PA-C [address] [place] [address] Rasta Borjas MD [address] [place] [address] documented as of this encounter Visit Diagnoses Not on filedocumented in this encounter Care Teams Home Security Professional Relationship Specialty Start Date End Date Anna Dejesus MD PCP - General Internal Medicine 05/22/15 documented as of this encounter
--- OUTSIDE RECORDS SUMMARY | 2023-11-06 18:31 | XMS_ITS | Encounter Summary ---
Author Organization [facility] Address [address] [place] [address] Care Team Providers Care Reporting Process Consultant Name Role Phone Anna Dejesus MD Primary Care Provider [phone] Encounter Details Date Type Department Care Team Description 10/30/2020 10:00 PM EDT - 10/30/2020 11:59 PM EDT Hospital Encounter [facility] [address] [place], [place] [phone] Penelope Deng PA [address] [place] [phone] Urinary tract infection, site not specified (Primary Dx) Discharge Disposition: Home or Self Care Social [...] Department of Radiology and Imaging Services [address] [place], [place] [phone] Dinorah Mas PA-C [address] [place], [place] [phone] 01/18/2024 1:30 PM EDT Appointment Department of [facility]iology [facility] Services [address] [place] [address] Dinorah Mas PA-C [address] [place] [address] 332[address] 01/18/2024 2:20 PM EDT Office Visit [facility] [address] [place] [phone] Dinorah Mas PA-C [address] [place] [address] Rasta Borjas MD [address] [place] [phone] documented as of this encounter Procedures Procedure Name Priority Date/Time Associated Diagnosis Comments URINE CULTURE Routine 10/30/2020 11:13 PM EDT Urinary tract infection, site not specified UA WITH REFLEX CULTURE Routine 10/30/2020 11:12 PM EDT Urinary tract infection, site not specified documented in this encounter Results * Culture, Urine (10/30/2020 11:13 PM EDT) Urine Culture [facility] Specimen Description URINE CLEAN CATCH 10/30/2020 10:03 PM EDT [facility] Special Request NONE 10/30/2020 10:03 PM EDT [facility] Culture >100,000 COL/ML ESCHERICHIA COLI 11/01/2020 11:25 AM EDT [facility] Report Status FINAL 11/02/2020 7:13 AM EDT [facility] Comment:11/02/2020 Organism ECOL 11/02/2020 7:13 AM EDT [facility] Urine, Clean Catch 10/30/2020 11:13 PM EDT 10/30/2020 11:13 PM EDT Narrative Organism Antibiotic Method Susceptibility Escherichia coli Ampicillin SUSCEPTIBLE: Sensitive Escherichia coli Ceftriaxone SUSCEPTIBLE: Sensitive Escherichia coli Ciprofloxacin SUSCEPTIBLE: Sensitive Escherichia coli Gentamicin SUSCEPTIBLE: Sensitive Escherichia coli Nitrofurantoin SUSCEPTIBLE: Sensitive Escherichia coli Trimethoprim + Sulfamethoxazole SUSCEPTIBLE: Sensitive Escherichia coli Aztreonam SUSCEPTIBLE: Sensitive Escherichia coli Ampicillin + Sulbactam SUSCEPTIBLE: Sensitive Escherichia coli Ertapenem SUSCEPTIBLE: Sensitive Escherichia coli Meropenem SUSCEPTIBLE: Sensitive Penelope JULIO MICROBIOLOGY - GENER AL ORDERABLES [facility] [address] [place] [address] (CLIA #[id number]) ([id number]) [place] [address] * (ABNORMAL) UA With Reflex Culture (10/30/2020 11:12 PM EDT) Specimen Type: URINE, RANDOM 10/30/2020 11:12 PM EDT [facility] Glucose, Ur NEGATIVE NEG mg/dL 10/31/2020 5:16 AM EDT [facility] Ketones, Ur NEGATIVE NEG mg/dL 10/31/2020 5:16 AM EDT [facility] Specific [place] 1.002(L) 1.005 - 1.030 10/31/2020 5:16 AM EDT [facility] Occult Blood LARGE(A) NEG 10/31/2020 5:16 AM EDT [facility] pH, Ur 7.0 4.5 - 8.0 10/31/2020 5:16 AM EDT [facility] Protein, Ur NEGATIVE NEG mg/dL 10/31/2020 5:16 AM EDT [facility] Nitrite NEGATIVE NEG 10/31/2020 5:16 AM EDT [facility] Leukocyte Esterase LARGE(A) NEG 10/31/2020 5:16 AM EDT [facility] Clarity, UA CLEAR 10/31/2020 5:16 AM EDT [facility] Urine Color STRAW 10/31/2020 5:16 AM EDT [facility] RBC, Ur 1 0 - 3 /HPF 10/31/2020 5:17 AM EDT [facility] WBC, Ur 39(H) 0 - 5 /HPF 10/31/2020 5:17 AM EDT [facility] Bacteria, UA PRESENT(A) NONE 10/31/2020 5:17 AM EDT [facility] Squamous Epithelial, Ur 5 0 - 5 /LFP 10/31/2020 5:17 AM EDT [facility] Comment: [place] [address] Yusuf Wilson Jr, MD Director [facility] [id number] ??CL [id number] 10/30/2020 11:1 2 PM EDT 10/30/2020 11:12 PM EDT Penelope JULIO URINE ORDERABLES [facility] [address] [place] [address] (CLIA #[id number]) ([id number]) [place] [address] documented in this encounter Visit Diagnoses Diagnosis Urinary tract infection, site not specified- Primary documented in this encounter Care Teams Reporting Process Consultant Relationship Specialty Start Date End Date Anna Dejesus MD PCP - General Internal Medicine 05/22/15 documented as of this encounter
--- OUTSIDE RECORDS SUMMARY | 2023-11-06 18:31 | XMS_ITS | Encounter Summary ---
Author Organization [facility] Address [address] [place] [address] Care Team Providers Care Building Drafter Name Role Phone Anna Dejesus MD Primary Care Provider [phone] Encounter Details Date Type Department Care Team Description 06/17/2023 Travel Social History Tobacco Use Types Packs/Day [...] Appointment Department of Radiology [facility] Imaging Services [address] [place] [phone] Dinorah Mas PA-C [address] [place] [address] 17825 01/18/2024 1:30 PM EDT Appointment Department of [facility]iology [facility] Services [address] [place] [address] Dinorah Mas PA-C [address] [place] [address] [phone] 01/18/2024 2:20 PM EDT Office Visit [facility] [address] [place] [address] Dinorah Mas PA-C [facility] [place] [place] [address] Rasta Borjas MD [address] [place] [address] documented as of this encounter Visit Diagnoses Not on filedocumented in this encounter Care Teams Building Drafter Relationship Specialty Start Date End Date Anna Dejesus MD PCP - General Internal Medicine 05/22/15 documented as of this encounter
--- OUTSIDE RECORDS SUMMARY | 2023-11-06 18:31 | XMS_ITS | Encounter Summary ---
Author Organization [facility] Address [address] [place] [address] Care Team Providers Care Gear And Spline Grinder Name Role Phone Anna Dejesus MD Primary Care Provider [phone] Encounter Details Date Type Department Care Team Description 05/28/2023 Travel Social History Tobacco Use Types Packs/Day [...] Appointment Department of [facility]iology [facility] Services [address] [place] [address] Dinorah Mas PA-C [address] [place] [phone] 01/18/2024 1:30 PM EDT Appointment Department of [facility]iology [facility] Services [address] [place] [phone] Dinorah Mas PA-C [address] [place] [address] [phone] 01/18/2024 2:20 PM EDT Office Visit [facility] [address] [place] [address] Dinorah Mas PA-C [facility] [place] [address] Rasta Borjas MD [address] [place] [address] documented as of this encounter Visit Diagnoses Not on filedocumented in this encounter Care Teams Gear And Spline Grinder Relationship Specialty Start Date End Date Anna Dejesus MD PCP - General Internal Medicine 05/22/15 documented as of this encounter
--- OUTSIDE RECORDS SUMMARY | 2023-11-06 18:31 | XMS_ITS | Encounter Summary ---
Author Organization [facility] Address [address] [place] [address] Care Team Providers Care Hogshead Roller Name Role Phone Anna Dejesus MD Primary Care Provider [phone] Reason for Referral * Preauthorization (Routine) - Pending Review Specialty Diagnoses / Procedures Referred By Contac t Referred To Contact Diagnoses Mass of upper outer quadrant of left breast Procedures US Left Breast Biopsy 1 Lesion Core Rotational Dev & Clip Place Rasta Borjas MD [address] [place] [address] [facility] Parent Location [address] [place] [address] Referral ID Status Reason Start Date Expiration Date V isits Requested Visits Authorized [id number] Pending Review 06/06/2023 06/05/2024 1 1 Reason for Visit * Preauthorization (Routine) - Pending Review Specialty Diagnoses / Procedures Referred By Contac t Referred To Contact Diagnoses Mass of upper outer quadrant of left breast Procedures US Left Breast Biopsy 1 Lesion Core Rotational Dev & Clip Place Rasta Borjas MD [address] [place] [address] [facility] Parent Location [address] [place] [address] Referral ID Status Reason Start Date Expiration Date V isits Requested Visits Authorized [id number] Pending Review 06/06/2023 06/05/2024 1 1 Encounter Details Date Type Department Care Team Description 06/17/2023 10:00 AM EST - 06/17/2023 11:59 PM EST Hospital Encounter Department of Radiology and Imaging Services [address] [place] [address] Rasta Borjas MD [address] [place] [address] Mass of upper outer quadrant of left breast Discharge Disposition: Home or Self Care Social [...] Appointment Department of [facility]iology [facility] Services [address] [place] [phone] Dinorah Mas PA-C [address] [place] [address] 01/18/2024 1:30 PM EDT Appointment Department of [facility]iology [facility] [address] [place] [address] Dinorah Mas PA-C [address] [place] [address] 01/18/2024 2:20 PM EDT Office Visit [facility] Breast th Consul [address] [place] [phone] Dinorah Mas PA-C [address] [place] [address] Rasta Borjas MD [address] [place] [address] documented as of this encounter Procedures Procedure Name Priority Date/Time Associated Diagnosis Comments SURGICAL PATHOLOGY Routine 06/17/2023 3: 59 PM EST US LEFT BREAST BIOPSY 1 LESION CORE ROTATIONAL DEV & CLIP PLACE Routine 06/17/2023 11:33 AM EST Mass of upper outer quadrant of left breast documented in this encounter Results * Surgical Pathology (06/17/2023 3:59 PM EST) Pathology Report Patient Name: LESTER STEVENS 06/22/2023 12:56 PM EDT [facility] Comment: MR#: [id number] Collected Date: 06/17/2023 Reported Date: 06/22/2023 Specimen #[id number] Final Diagnosis Left breast, at 12:00 (periareolar scar, Q clip), ultrasound-guided needle core biopsy: Predominantly fibroadipose tissue with patchy hyalinized stroma, focal dystrophic calcification and fat necrosis. No mammary glands identified. No evidence of any atypia or malignancy. Note: Recommend clinical and radiographic correlations to ensure that the targeted lesion was sampled. ??Appropriate follow-up needed, as clinically indicated. ??This case was reviewed at the intradepartmental conference at [place] on 06/20/2023, the above diagnosis reflects the consensus opinion. Final Comment MCK immunostain is negative supporting the rendered diagnosis. This test (immunohistochemical staining) was developed and its performance characteristics determined by [facility]. It has not been cleared or approved by U.S. Food and Drug Administration. The FDA does not require this test to go through premarket FDA review. This test is used for clinical purposes. It should not be regarded as investigational or for research. This laboratory is certified under Clinical Laboratory Improvement Amendments of 1988 (CLIA) as qualified to perform high complexity clinical laboratory testing. Appropriate results are obtained with positive controls. ?? Source: 1: Left breast core biopsy 12:00 periareolar Macroscopic Description Received in formalin labeled LT breast 12:00 periareolar are 4 fibrofatty tissue cores ranging in size from 1.2 x 0.3 cm, up to 1.8 x 0.3 cm, which are submitted in toto in 1 cassette. 1A4 pieces Time removed from patient and placed in formalin: 1125, 06/17/2023 Time tissue exits final stage of formalin on tissue processor: 1999, 06/17/2023 Total fixation time: 6-72 hours ELEUTERIO 06/17/2023 Electronically Signed Out Kaya Grimes MD Test Performed by: [address] ??[id number] Nayeli Gaines M.D., Director [phone] or [phone] Biopsy 06/17/2023 3:59 PM EST 06/17/2023 4:18 PM EST Parisa Lorenz MD PATHOLOGY/CYTOLOGY ORDERABLES [facility] [address] [place] [address] ([place] #[id number]) ([id number]) [place] [address] * US Left Breast Biopsy 1 Lesion Core Rotational Dev & Clip Place (06/17/2023 11:33 AM EST) Anatomical Region Laterality Modality Breast Left Ultrasound 07/04/2023 11:0 3 AM EDT Impressions 07/04/2023 11:06 AM EDT Successful ultrasound guided biopsy of a left breast 12:00 periareolar nodular lesion associated with the surgical scar consistent with benign pathology, as above. BI-RADS Category 2: Benign findings RECOMMENDATION: Continue clinical follow-up. ??Continue routine annual screening mammography. ??Follow bilateral breast MRI is recommended in 6 months as well. Session: separate. Report reviewed and signed by : Dr. Parisa Lorenz MD on 07/04/2023 11:06 AM. Workstation Name - [id number] Narrative 07/04/2023 11:06 AM EDT EXAM PERFORMED: US LEFT BREAST BIOPSY 1 LESION CORE ROTATIONAL DEV & CLIP PLACE EXAM HISTORY: Left breast 12:00 periareolar nodular density associated with the surgical scar, felt to correlate with the area of mild enhancement on recent bilateral breast MRI COMPARISONS: Left breast ultrasound dated 06/06/2023. ??Bilateral breast MRI dated 05/28/2023 TECHNIQUE: Permanent images were obtained The procedure, including its risks and benefits, were explained to the patient and informed consent was obtained. A time out procedure was performed, confirming the request for an Ultrasound-guided left breast biopsy. The lesion was relocated within the o'clock axis of the left breast and a surface on the skin overlying the lesion was prepped and draped in the normal sterile fashion. Approximately 8 mL of 1% lidocaine was injected into the soft tissues under direct ultrasound guidance. Utilizing direct ultrasound guidance, a 12 gauge Trader Sam biopsy system was advanced to the lesion. Several samples were obtained under direct ultrasound guidance. A Q shaped biopsy clip was then deployed within the biopsy bed. The patient tolerated the procedure well and without immediate complication. Postprocedural mammogram: CC and ML projections demonstrate the biopsy clip to be within the appropriate position. SURGICAL PATHOLOGY REPORT DIAGNOSIS: Predominantly fibroadipose tissue with patchy hyalinized stroma, focal dystrophic calcification and fat necrosis. No mammary glands identified. No evidence of any atypia or malignancy Pathology findings are concordant with imaging findings. Rasta Borjas MD IMG US ORDERABLES documented in this encounter Visit Diagnoses Diagnosis Mass of upper outer quadrant of left breast documented in this encounter Care Teams Hogshead Roller Relationship Specialty Start Date End Date Anna Dejseus MD PCP - General Internal Medicine 05/22/15 documented as of this encounter
--- OUTSIDE RECORDS SUMMARY | 2023-11-06 18:31 | XMS_ITS | Encounter Summary ---
Author Organization [facility] Address [address] [place] [address] Care Team Providers Care Landscaping Crew Leader Name Role Phone Anna Dejesus MD Primary Care Provider [phone] Reason for Referral * Preauthorization (Routine) - Pending Review Specialty Diagnoses / Procedures Referred By Harper phillips Referred To Contact Diagnoses Mass of upper outer quadrant of left breast Abnormal finding on breast imaging History of left breast cancer History of breast conservation therapy Procedures US Breast Scan Diagnostic Left Limited Dinorah Mas PA-C [address] [place] [address] Referral ID Status Reason Start Date Expiration Date V isits Requested Visits Authorized [id number] Pending Review 01/07/2024 01/06/2025 1 1 * Preauthorization (Routine) - Pending Review Specialty Diagnoses / Procedures Referred By Harper phillips Referred To Contact Radiology Diagnoses Mass of upper outer quadrant of left breast Abnormal finding on breast imaging History of left breast cancer History of breast conservation therapy Procedures MRI Breast BI With W/O IV Cont with CAD Dinorah Mas PA-C [address] [place] [address] Referral ID Status Reason Start Date Expiration Date V isits Requested Visits Authorized [id number] Pending Review 01/07/2024 01/06/2025 1 1 Reason for Visit * Reason Comments Follow-up Encounter Details Date Type Department Care Team Description 10/07/2023 3:00 PM EDT Office Visit [facility] Breast [facility] Consul [address] [place] [address] Dinorah Mas PA-C [address] [place] [address] Mass of upper outer quadrant of left breast (Primary Dx); Abnormal finding on breast imaging; History of left breast cancer; History of breast conservation therapy Social History Tobacco Use Types Packs/Day Years Used Date Smoking Tobacco: Never Smokeless Tobacco: Never Tobacco Cessation:Counseling Given: Not Answered Alcohol Use Standard Drinks/Week Comments Never 0 (1 standard drink = 0.6 oz pur e alcohol) Sex and Gender Information Value Date Recorded Sex Assigned at Female 05/25/2023 9:21 AM EST Gender Identity Female 05/25/2023 5:41 PM EST Sexual Orientation Not on file Job Start Date Occupation Industry Not on file Not on file Not on file documented as of this encounter Last Filed Vital Signs Vital Sign Reading Time Taken Comments Blood Pressure 112/60 10/07/2023 3:13 PM EDT Pulse 72 10/07/2023 3:13 PM EDT Temperature - - Respiratory Rate - - Oxygen Saturation 97% 10/07/2023 3:13 PM EDT Inhaled Oxygen Concentration - - Weight 60.3 kg (133 lb) 10/07/2023 3:13 PM EDT Height 157.5 cm (5' 2) 10/07/2023 3:13 PM EDT Body Mass Index 24.33 10/07/2023 3:13 PM EDT documented in this encounter Progress Notes * Dinorah Mas PA-C - 10/07/2023 3:00 PM EDT BREAST SURGERY FOLLOW UP VISIT NOTE HISTORY OF PRESENT ILLNESS: Joyce Flanagan is a 83 y.o. female who presents today for follow-up. She is an established patientin our practice last seen by Dr. Borjas 06/17/23 She is seen in context of history of left breast cancer status post breast conservation therapy in 1976 and possibly 2010. The dates of her previous left breast cancer treatment are somewhat uncertain. The patient had recorded that her treatment was in 1976 but then stated that her surgery was in 2010. In 2010 she actually had surgery apparently directed at some epicondylitis of the right elbow according to the record. Her left breast cancer treatment resulted in previous excisional procedure removal of lymph nodes and radiation therapy. There were a number of issues related to her previous treatment that she foundhighly objectionable and difficult and she was not happy with the interventions at that time. This i ncluded a very painful biopsy prior to the diagnosis. We do not have the specifics of her treatmentavailable for our review at this time. It appears she did get chemotherapy She underwent a left breast biopsy on 06/17/2019 for the 12 o'clock position which was found to be benign fibroadipose tissue with patchy hyalinized stroma, focal dystrophic calcifications and fat necrosis. she complains that she recently had a left ear infection that was very bad and still continues to have some pain she has been recommended to call her ENT again about this. She also states she still occasionally has pain at the site of the previous breast conservation surgery Today she offers no other breast complaints. She denies skin changes, redness, retraction, thickening or dimpling. She has no masses or lumps on self exam. She denies nipple discharge and nipple inversion. She denies any changes in her family history. She denies any changes in her personal medical or surgical history. IMAGING REVIEW: No results found. PATH REVIEW: FAMILY HISTORY: Breast CA: negative Ovarian CA: negative Past/Family/Social History: History reviewed. No pertinent past medical history. History reviewed. No pertinent surgical history. History reviewed. No pertinent family history. Social History Socioeconomic History ??? Marital status: Spouse name: Not on file ??? Number of children: Not on file ??? Years of education: Not on file ??? Highest education level: Not on file Occupational History ??? Not on file Tobacco Use ??? Smoking status: Never ??? Smokeless tobacco: Never Substance and Sexual Activity ??? Alcohol use: Never ??? Drug use: Never ??? Sexual activity: Not on file Other Topics Concern ??? Not on file Social History Narrative ??? Not on file Social Determinants of Health Financial Resource Strain: Not on file Food Insecurity: Not on file Transportation Needs: Not on file Social Connections: Not on file Housing Stability: Not on file ALLERGIES: Allergies Allergen Reactions ??? Penicillin V Other (See Comments) REVIEW OF SYSTEMS Constitutional: Negative for fatigue, fever, weight loss, appetite change HEENT: Negative for hearing loss, vision changes Respiratory: Negative for cough, wheezing, shortness of breath. Cardiovascular: Negative for chest pain, palpitations, extremity edema Gastrointestinal: Negative for abdominal pain, nausea, vomiting, diarrhea, constipation, blood in stool Endocrine: Negative for heat intolerance, cold intolerance, hot flashes. Genitourinary: Negative for frequency, urgency, dysuria, nocturia. Musculoskeletal: Negative for muscle, bone or joint pain. Skin: Negative for rash or pruritis. Neurologic: Negative for speech difficulty, weakness, numbness, headache, fainting, recent falls, confusion. Hematologic: Negative for easy bruising/bleeding, history of blood clot, enlarged lymph nodes. Psychiatric: Negative for insomnia, depression, anxiety PHYSICAL EXAM BP 112/60 Pulse 72 Ht 5' 2 (1.575 m) Wt 60.3 kg (133 lb) SpO2 97% BMI 24.33 kg/m?? Physical Exam Constitutional: Appears as stated age, well-developed, well-nourished. Pulm: No accessory muscle use. Abd: soft, nontender Psych: No acute distress. Appropriate mood and affect Musculoskeletal: Gross ROM intact bilateral UE. Neck supple, gross ROM intact. Lymph: No supraclavicular or cervical lymphadenopathy appreciated. No axillary lymphadenopathy appreciated. Breasts: Examined in sitting and supine position. Breasts are grossly symmetrical. -Right: No palpable mass, no tenderness, no skin retraction, no erythema, no rash, no peau d'orange. No nipple inversion, no nipple discharge, no nipple bleeding. -Left: Well-healed periareolar incision and axillary incision. Some parenchymal defect retraction at the surgical site and overall central density increased however has remained the same since previous visit. No palpable mass, no tenderness, no skin retraction, no erythema, no rash, no peau d'orange. No nipple inversion, no nipple discharge, no nipple bleeding. IMPRESSION & PLAN: Joyce Flanagan is a 83 y.o. female with history of left breast cancer status post breast conservation therapy, left breast biopsy proven benign biopsy. She is stable from a clinical and radiologicalstandpoint at this time. We will continue to follow her closely in our breast program. She will return in 3 months for left breast diagnostic US with attention to 12:[address] Borjas for CBE We will also order a follow up bilateral breast MRI to follow up the radiology recommendations due to abnormal mri previously of the left breast 12:00 this will be done 1 week prior to her follow-up with Dr. Borjas Patient refuses mammogram Lifestyle strategies to reduce risk of breast cancer were reviewed with the patient. We discussed the importance of limiting alcoholic beverages, living an active life, following a healthy well balanced diet and avoiding obesity in order to decrease her risk of disease. She understands this. She is encouraged to continue with her self breast exams, and certainly contact our office to be seen sooner if any questions or concerns should arise. 30 minutes were spent today for this encounter, including [id number] interview and physical exam,review of previously ordered and performed tests, review of previously obtained history, counselingand educating the patient, placing further orders and documenting clinical information in the electronic health record. Refer to the sections regarding history, data review, physical exam, assessmentand plan for details. Dictation software used in formation of this note, there may be errors or omissions that have gone unnoticed. Dinorah Mas PA-C Breast Surgery [facility] Attendings: MD Rose Ramsey (Nick) MD Amy Enamorado MD Olayemi Ajayi, MD (Chaparrita Bravo MD *retired) Orders Placed This Encounter Procedures ??? MRI Breast BI With W/O IV Cont with CAD ??? US Breast Scan Diagnostic Left Limited Return for schd mri 3 months, schd US and visit dr borjas 1 week after mri . documented in this encounter Plan of Treatment Upcoming Encounters Date Type Department Care Team Description 01/11/2024 12:45 PM EDT Appointment Department of Radiology and Imaging Services [address] [place] [phone] Dinorah Mas PA-C [address] [place] [address] 01/18/2024 1:30 PM EDT Appointment Department of Radiology and Imaging Services [address] [place] [phone] Dinorah Mas PA-C [address] [place] [address] 01/18/2024 2:20 PM EDT Office Visit [facility] Breast th Consul [address] [place] [phone] Dinorah Mas PA-C [address] [place] [address] Rasta Borjas MD [address] [place] [phone] Scheduled Orders Name Type Priority Associated Diagnoses Orde r Schedule MRI Breast BI With W/O IV Cont with CAD Imaging Routine Mass of upper outer quadrant of left breast Abnormal finding on breast imaging History of left breast cancer History of breast conservation therapy Expected: 01/07/2024 (Approximate), Expires: 04/07/2025 US Breast Scan Diagnostic Left Limited Imaging Routine Mass of upper outer quadrant of left breast Abnormal finding on breast imaging History of left breast cancer History of breast conservation therapy Expected: 01/07/2024 (Approximate), Expires: 04/07/2025 documented as of this encounter Visit Diagnoses Diagnosis Mass of upper outer quadrant of left breast- Primary Abnormal finding on breast imaging History of left breast cancer History of breast conservation therapy documented in this encounter Care Teams Landscaping Crew Leader Relationship Specialty Start Date End Date Anna Dejesus MD PCP - General Internal Medicine 05/22/15 documented as of this encounter
--- OUTSIDE RECORDS SUMMARY | 2023-11-06 18:31 | XMS_ITS | Clinical Summary ---
Author Organization [facility] Address [address] [place] [address] Care Team Providers Care Information Resources Director Name Role Phone Anna Dejesus MD Primary Care Provider [phone] Allergies Active Allergy Reactions Criticality Noted Date Comments Penicillin V Other (See Comments) 10/07/2023 Medications Medication Sig Dispensed Refills Start Date End Date Status latanoprost (XALATAN) 0.005 % ophthalmic solution INT 1 DROP IN OU HS 6 10/20/2016 Active omeprazole (PriLOSEC) 20 MG capsule 0 04/19/2023 Active Denver-3 Fatty Acids (FISH OIL PO) Take by mouth. 0 Active Active Problems Problem Noted Date Diagnosed Date Abnormal finding on breast imaging 06/17/2023 History of left breast cancer 06/17/2023 History of breast conservation therapy Encounters Date Type Department Care Team Description 10/07/2023 3:00 PM EDT Office Visit [facility]ul [address] [place] [address] Dinorah Mas PA-C Mass of upper outer quadrant of left breast (Primary Dx); Abnormal finding on breast imaging; History of left breast cancer; History of breast conservation therapy 10/07/2023 Travel from Last 3 Months Social History Tobacco Use Types Packs/Day Years [...] file Not on file Not on file Last Filed Vital Signs Vital Sign Reading Time Taken Comments Blood Pressure 112/60 10/07/2023 3:13 PM EDT Pulse 72 10/07/2023 3:13 PM EDT Temperature 36.4 ??C (97.5 ??F) 06/17/2023 9:12 AM ES T Respiratory Rate - - Oxygen Saturation 97% 10/07/2023 3:13 PM EDT Inhaled Oxygen Concentration - - Weight 60.3 kg (133 lb) 10/07/2023 3:13 PM EDT Height 157.5 cm (5' 2) 10/07/2023 3:13 PM EDT Body Mass Index 24.33 10/07/2023 3:13 PM EDT Plan of Treatment Upcoming Encounters Date Type Department Care Team Description 01/11/2024 12:45 PM EDT Appointment Department of Radiology and Imaging Services [address] [place] [phone] Dinorah Mas PA-C [address] [place] [phone] 01/18/2024 1:30 PM EDT Appointment Department of Radiology and Imaging Services [address] [place] [phone] Dinorah Mas PA-C [address] [place] [phone] 01/18/2024 2:20 PM EDT Office Visit [facility] Breast th Consul [address] [place] [address] Dinorah Mas PA-C [address] [place] [phone] Rasta Borjas MD [address] [place] [address] Health Maintenance Due Date Last Done Comments COVID-19 Vaccine (#1) 01/06/1941 Depression Screening 1952 Preventative Health Evaluation 1958 DTap / Tdap / Td (1 - Tdap) 07/07/1959 RSV Adult > 60+ Yrs or (1 - 1-dose 60+ series) 2000 Fall Risk Assessment 2005 Osteoporosis Screening (DEXA Scan) 2005 Influenza Vaccine (#1) 2023 , 01/25/2022, 01/19/2017 Pneumococcal Vaccine Completed 11/23/2018, 04/02/2014 Shingrix-Zoster Vaccine Completed 02/29/20 20, 12/31/2019, 03/05/2015 Hepatitis B Vaccines Aged Out No long er eligible based on patient's age to complete this topic RSV Ped < 20 months Aged Out No longe r eligible based on patient's age to complete this topic Care Teams Information Resources Director Relationship Specialty Start Date End Date Anna Dejesus MD PCP - General Internal Medicine 05/22/15
--- OUTSIDE RECORDS SUMMARY | 2023-11-06 18:31 | XMS_ITS | Encounter Summary ---
Author Organization [facility] Address [address] [place] [address] Care Team Providers Care Public Policy Associate Name Role Phone Anna Dejesus MD Primary Care Provider [phone] Encounter Details Date Type Department Care Team Description 10/27/2016 10:00 AM EDT Office [place] [address] Jun Arellano MD Coccygodynia (Primary Dx) Social History Tobacco Use Types Packs/Day Years Used Date Smoking Tobacco: Never Assessed Sex and Gender Information Value Date Recorded Sex Assigned at Female 05/25/2023 9:21 AM EST Gender Identity Female 05/25/2023 5:41 PM EST Sexual Orientation Not on file Job Start Date Occupation Industry Not on file Not on file Not on file documented as of this encounter Progress Notes * Jun Arellano MD - 10/27/2016 10:00 AM EDT October 27, 2016 She went on a long car ride to [place] on 12 October and following this felt like she was sitting on a lump in her left buttock. It has slowly improved. It is still symptomatic. She denies any fever or chills. She denies any drainage of pus. She had hemorrhoid surgery many years ago. She describes it as a dull ache just to the left of the coccyx in the left buttock. On physical examination, careful inspection of the perianal skin shows that she has 2 minor retention cysts. There is no inflammation. She points out an area cephalad to all of this to the left of the coccyx and actually even a little higher up. By palpation I do not appreciate any mass in the areaand there is no discoloration. There is also no edema. Digital anal exam shows mild sphincter spasmbut there is no evidence of a thrombosis and I do not palpate anything to suggest a deep-seated abscess. Anoscopic examination is accomplished and I do not find anything suspicious. There is no evidence of a thrombosed hemorrhoid for example. By her history I suspect she has osteoarthritis brought on by the car ride. I went over the possibilities including a very deep-seated infection and how unlikely that seems. I am going to treat her with Celebrex and I told her just to observe things. She will contact me if something more graphic should develop documented in this encounter Plan of Treatment Upcoming Encounters Date Type Department Care Team Description 01/11/2024 12:45 PM EDT Appointment Department of Radiology and Imaging Services [address] [place] [phone] Dinorah Mas PA-C [address] [place] [phone] 01/18/2024 1:30 PM EDT Appointment Department of Radiology and Imaging Services [address] [place] [address] Dinorah Mas PA-C [address] [place] [phone] 01/18/2024 2:20 PM EDT Office Visit [facility] Breast Hlth Consul [address] [place] [address] Dinorah Mas PA-C [address] [place] [phone] Rasta Borjas MD [address] [place] [phone] documented as of this encounter Visit Diagnoses Diagnosis Coccygodynia- Primary Other disorder of coccyx documented in this encounter Care Teams Public Policy Associate Relationship Specialty Start Date End Date Anna Dejesus MD PCP - General Internal Medicine 05/22/15 documented as of this encounter
--- OUTSIDE RECORDS SUMMARY | 2023-11-06 18:31 | XMS_ITS | Encounter Summary ---
Author Organization [facility] Address [address] [place] [id number] Care Team Providers Care Commercial Loan Specialist Name Role Phone Anna Dejesus MD Primary Care Provider [phone] Reason for Visit * Preauthorization (Routine) - Pending Review Specialty Diagnoses / Procedures Referred By Contac t Referred To Contact Radiology Diagnoses Mass of upper outer quadrant of left breast Procedures Diagnostic Post BX Mammo BI With CAD Diagnostic Post BX Mammo Left With Cad Rasta Borjas MD [address] [place] [address] Referral ID Status Reason Start Date Expiration Date V isits Requested Visits Authorized [id number] Pending Review 06/07/2023 06/06/2024 1 1 Encounter Details Date Type Department Care Team Description 06/17/2023 8:48 AM EST - 06/17/2023 9:59 AM EST Hospital Encounter Department of Radiology and Imaging Services [address] [place] [address] Rasta Borjas MD [address] [place] [address] Mass of upper outer quadrant of left [...] Appointment Department of Radiology and Imaging Services [address] [place] [phone] Dinorah Mas PA-C [address] [place] [phone] 01/18/2024 1:30 PM EDT Appointment Department of Radiology and Imaging Services [address] [place] [address] Dinorah Mas PA-C [address] [place] [phone] 01/18/2024 2:20 PM EDT Office Visit [facility] Breast Hlth Consul [address] [place] [place] [address] Dinorah Mas PA-C [address] [place] [address] Rasta Borjas MD [address] [place] [phone] documented as of this encounter Procedures Procedure Name Priority Date/Time Associated Diagnosis Comments DIAGNOSTIC MAMMOGRAM POST BIOPSY BILAT NO CHARGE Routine 06/17/2023 11:37 AM EST Mass of upper outer quadrant of left breast documented in this encounter Results * Diagnostic Post BX Mammo BI With CAD (06/17/2023 11:37 AM EST) Anatomical Region Laterality Modality Breast Bilateral Digital Radiogra phy 06/17/2023 4:25 PM EST Narrative 06/17/2023 4:26 PM EST EXAM PERFORMED: DIAGNOSTIC MAMMOGRAM POST BIOPSY BILAT NO CHARGE EXAM HISTORY: Status post ultrasound-guided biopsy of a left breast 12:00 periareolar lesion COMPARISON: Images from left breast biopsy performed concurrently. Bilateral breast MRI dated 05/28/2023 TECHNIQUE: 2D digital mammography performed utilizing computer aided detection. ??Bilateral full-field CC and right MLO and left ML views were obtained FINDINGS: Right breast: No suspicious masses, clusters of microcalcification or areas of architectural distortion are identified. ?? Left breast: Postprocedure mammogram was obtained to document biopsy marker clip location. Biopsy marker clip is seen in good position. There are postsurgical changes in the central breast at anterior/mid depth from prior lumpectomy. There are associated typically benign coarse calcifications. BI-RADS: 99 Session: Separate Report reviewed and signed by : Dr. Parisa Lorenz MD on 06/17/2023 4:26 PM. Workstation Name - [id number] Procedure Note Parisa Lorenz MD - 06/17/2023 EXAM PERFORMED: DIAGNOSTIC MAMMOGRAM POST BIOPSY BILAT NO CHARGE EXAM HISTORY: Status post ultrasound-guided biopsy of a left breast 12:00periareolar lesion COMPARISON: Images from left breast biopsy performed concurrently.Bilateral breast MRI dated 05/28/2023 TECHNIQUE: 2D digital mammography performed utilizing computer aideddetection. Bilateral full-field CC and right MLO and left ML views wereobtained FINDINGS: Right breast: No suspicious masses, clusters of microcalcification orareas of architectural distortion are identified. Left breast: Postprocedure mammogram was obtained to document biopsymarker clip location. Biopsy marker clip is seen in good position. Thereare postsurgical changes in the central breast at anterior/mid depth fromprior lumpectomy. There are associated typically benign coarsecalcifications. BI-RADS: 99 Session: Separate Report reviewed and signed by : Dr. Parisa Lorenz MD on 06/17/2023 4:26PM. Workstation Name - [id number] Rasta Borjas MD IMG MAMMOGRAPHY [facility] documented in this encounter Visit Diagnoses Diagnosis Mass of upper outer quadrant of left breast documented in this encounter Care Teams Commercial Loan Specialist Relationship Specialty Start Date End Date Anna Dejesus MD PCP - General Internal Medicine 05/22/15 documented as of this encounter
--- OUTSIDE RECORDS SUMMARY | 2023-11-06 18:31 | XMS_ITS | Encounter Summary ---
Author Organization [facility] Address [address] [place] [address] Care Team Providers Care City Secretary Name Role Phone Anna Dejesus MD Primary Care Provider [phone] Reason for Visit * Reason Comments New Patient Appointment * Consultation/Specialty Services (Routine) - Closed Specialty Diagnoses / Procedures Referred By Contac t Referred To Contact General Surgery Diagnoses Abnormal finding on breast imaging Anna Dejesus MD [address] [place] [address] Rasta Borjas MD [address] [place] [address] Referral ID Status Reason Start Date Expiration Date V isits Requested Visits Authorized [id number] Closed Specialty Services Required 06/07/2023 06/06/2024 1 1 Encounter Details Date Type Department Care Team Description 06/17/2023 9:00 AM EST Office Visit [facility] Breast th Consul [address] [place] [address] Rasta Borjas MD [address] [place] [address] History of left breast cancer (Primary Dx); Abnormal finding on breast imaging; History of breast conservation therapy Social History Tobacco Use Types Packs/Day Years Used Date Smoking Tobacco: Never Assessed Tobacco Cessation:Counseling Given: Not Answered Sex and Gender Information Value Date Recorded Sex Assigned at Female 05/25/2023 9:21 AM EST Gender Identity Female 05/25/2023 5:41 PM EST Sexual Orientation Not on file Job Start Date Occupation Industry Not on file Not on file Not on file documented as of this encounter Last Filed Vital Signs Vital Sign Reading Time Taken Comments Blood Pressure 143/66 06/17/2023 9:12 AM EST Pulse 91 06/17/2023 9:12 AM EST Temperature 36.4 ??C (97.5 ??F) 06/17/2023 9:12 AM ES T Respiratory Rate - - Oxygen Saturation 98% 06/17/2023 9:12 AM EST Inhaled Oxygen Concentration - - Weight 60.3 kg (133 lb) 06/17/2023 9:12 AM EST Height 157.5 cm (5' 2) 06/17/2023 9:12 AM EST Body Mass Index 24.33 06/17/2023 9:12 AM EST documented in this encounter Progress Notes * Rasta Borjas MD - 06/17/2023 9:00 AM EST CONSULT SUBJECTIVE: Joyce is a 82 y.o. female. Chief Complaint Patient presents with ??? New Patient Appointment HPI: Joyce is seen today in the company of her for clinical examination in advance of the planned ultrasound-guided biopsy of the left breast abnormality. The patient had apparently reported some discomfort in the region of her left breast and based on her previous history of left breast cancer with breast conservation therapy (performed in 1976 ? 2010 ?) imaging was performed including a breast MRI. This demonstrated concerning abnormality with a focal area of enhancement. Subsequent ultrasound evaluation confirmed that there were some abnormalities in the region of the scar in the 12 o'clock position of the left breast. The patient had apparently elected not to undergo mammography since she thought this was too painful. The dates of her previous left breast cancer treatment are somewhat uncertain. The patient had recorded that her treatment was in 1976 but then stated that her surgery was in 2010. In 2010 she actually had surgery apparently directed at some epicondylitis of the right elbow according to the record. Oncology possibly Dr. Fields in [place]? Her left breast cancer treatment resulted in [...] this time. It appears she did get chemotherapy. The patient has no known family history of any malignancies. The patient has had no recent evaluations or follow-up. All of her prior procedures were in [place]. She has no apparent cardiac or pulmonary issues other than prior history of pneumonia. She has somearthritis. She has no specifics regarding onset of menses or last menstrual period. She is 3 para 3 by . She has no history of any known bleeding or clotting abnormalities. No known endocrine disorders. Review of systems indicates back pain some heartburn and urinary frequency. ALLERGIES: Not on File CURRENT MEDS: Current Outpatient Medications Medication Sig Dispense Refill ??? latanoprost (XALATAN) 0.005 % ophthalmic solution INT 1 DROP IN OU HS 6 ??? omeprazole (PriLOSEC) 20 MG capsule No current facility-administered medications for this visit. VITAL SIGNS: Vitals: 06/17/23 0912 BP: 143/66 Pulse: 91 Temp: 97.5 ??F (36.4 ??C) TempSrc: Temporal SpO2: 98% Weight: 60.3 kg (133 lb) Height: 5' 2 (1.575 m) BMI Screening: patient's BMI was abnormal. Follow up plan includes: weight monitoring . HISTORY: No past medical history on file. No past surgical history on file. No family history on file. Social History Socioeconomic History ??? Marital status: Spouse name: Not on file ??? Number of children: Not on file ??? Years of education: Not on file ??? Highest education level: Not on file Occupational History ??? Not on file Tobacco Use ??? Smoking status: Not on file ??? Smokeless tobacco: Not on file Substance and Sexual Activity ??? Alcohol use: Not on file ??? Drug use: Not on file ??? Sexual activity: Not on file Other Topics Concern ??? Not on file Social History Narrative ??? Not on file Social Determinants of Health Financial Resource Strain: Not on file Food Insecurity: Not on file Transportation Needs: Not on file Social Connections: Not on file Housing Stability: Not on file ACTIVE PROBLEMS: Patient Active Problem List Diagnosis SNOMED CT(R) ??? Abnormal finding on breast imaging ABNORMAL FINDINGS ON DIAGNOSTIC IMAGING OF BREAST ??? History of left breast cancer HISTORY OF MALIGNANT NEOPLASM OF BREAST ??? History of breast conservation therapy HISTORY OF MASTECTOMY REVIEW OF SYSTEMS: Review of Systems Constitutional: Negative for appetite change, diaphoresis, fatigue, fever and unexpected weight change. HENT: Negative for mouth sores, trouble swallowing and voice change. Eyes: Negative for visual disturbance. Respiratory: Negative for cough, chest tightness, shortness of breath and wheezing. Cardiovascular: Negative for chest pain and palpitations. Gastrointestinal: Negative for abdominal distention, abdominal pain, blood in stool, constipation, diarrhea, nausea and vomiting. Some heartburn. Endocrine: Negative for cold intolerance and heat intolerance. Genitourinary: Positive for frequency. Negative for dysuria and urgency. Some nocturia. Musculoskeletal: Positive for back pain. Negative for joint swelling and myalgias. Skin: Negative for rash. Neurological: Negative for syncope, speech difficulty, weakness, light- headedness and headaches. Hematological: Negative for adenopathy. Does not bruise/bleed easily. PHYSICAL EXAM: On physical examination today in the supine and sitting position the right breast appears unremarkable to examination with no evidence of any inflammation, edema or retraction. There are no palpable findings to suggest any right breast mass or area of differential density. No evidence of any elicitable skin or nipple areolar retraction. The left breast appears to be somewhat smaller than the right. Periareolar incision and extending laterally is noted. Some apparent parenchymal defect retraction at the surgical site. Some regional central overall increased density. However, there is not a true 3-dimensional dominant or discrete mass abnormality identifiable on examination. There is no concerning elicitable skin or nipple areolar retraction that would not be associated with expectations following her prior treatment. No evidence of axillary adenopathy on either side. No supraclavicular or cervical adenopathy. No evidence of thyroid enlargement nodularity or mass. RECENT STUDIES: The patient's most recent breast MRI as well as her prior MRI and the ultrasound were directly reviewed along with the report. We demonstrated for her selected images from those studies. ASSESSMENT/PLAN: The clinical findings do not suggest overt evidence of regional recurrence on physical examination.However there is some concern regarding the findings on MRI. The ultrasound could well be associated only with scarring or even calcification. She has not had a mammogram done. We discussed with her the ultrasound-guided biopsy that is to be done subsequent to this visit. I advised her that I wouldcontact her as soon as the pathology report becomes available. Further recommendations will obviously depend entirely on the outcome of those results. We did discuss the possible outcomes that might be reported. For now, we have answered all her questions and those of her to their apparent s atisfaction. Impression: Indeterminant MRI findings and ultrasound findings left breast s/p previous breast conservation therapy. Plan: Ultrasound-guided biopsy. We will also attempt to retrieve records regarding her previous pathology and definitive therapies from her previous breast cancer treatment. Portions of this document were created using voice recognition software. Unrecognized word substitutions may occur. Over 30 minutes were spent in evaluation of this patient with review of the prior clinical record, review of the current history, review of any current and prior relevant imaging, clinical examination, discussion regarding findings, recommendations and possible subsequent interventions, with placement of orders as needed and documentation. Refer to the sections regarding data and imaging review, assessment and plan for details. No orders of the defined types were placed in this encounter. EJW documented in this encounter Plan of Treatment Upcoming Encounters Date Type Department Care Team Description 01/11/2024 12:45 PM EDT Appointment Department of Radiology and Imaging Services [address] [place] [phone] Dinorah Mas PA-C [address] [place] [phone] 01/18/2024 1:30 PM EDT Appointment Department of Radiology and Imaging Services [address] [place] [phone] Dinorah Mas PA-C [address] [place] [phone] 01/18/2024 2:20 PM EDT Office Visit [facility] Breast [facility] Consul [address] [place] [address] Dinorah Mas PA-C [address] [place] [address] Rasta Borjas MD [address] [place] [phone] documented as of this encounter Visit Diagnoses Diagnosis History of left breast cancer- Primary Abnormal finding on breast imaging History of breast conservation therapy documented in this encounter Care Teams City Secretary Relationship Specialty Start Date End Date Anna Dejesus MD PCP - General Internal Medicine 05/22/15 documented as of this encounter
--- OUTSIDE RECORDS SUMMARY | 2023-11-06 18:31 | XMS_ITS | Encounter Summary ---
Author Organization [facility] Address [address] [place] [address] Care Team Providers Care Regional Sales Coordinator Name Role Phone Anna Dejesus MD Primary Care Provider [phone] Encounter Details Date Type Department Care Team Description 08/31/2017 9:02 AM EDT - 08/31/2017 11:59 PM EDT Hospital Encounter Lab Draw Station [address] [place] [address] Anna Dejesus MD [address] [place] [address] Pure hypercholesterolemia Discharge Disposition: Home or Self Care Social [...] Appointment Department of Radiology and Imaging Services [address] [place], [place] [phone] Dinorah Mas PA-C [address] [place], [place] [phone] 01/18/2024 1:30 PM EDT Appointment Department of Radiology and Imaging Services [address] [place] [phone] Dinorah Mas PA-C [address] [place] [phone] 01/18/2024 2:20 PM EDT Office Visit [facility] Breast [facility] Consul [address] [place] [phone] Dinorah Mas PA-C [address] [place] [phone] Rasta Borjas MD [address] [place] [phone] documented as of this encounter Procedures Procedure Name Priority Date/Time Associated Diagnosis Comments COMPREHENSIVE METABOLIC PANEL/FASTING Routine 08/31/2017 9:06 AM EDT Pure hypercholesterolemia LIPID PANEL WITH REFLEX TO DIRECT LDL Routine 08/31/2017 9:06 AM EDT Pure hypercholesterolemia documented in this encounter Results * (ABNORMAL) LIPID PANEL WITH REFLEX TO DIRECT LDL (08/31/2017 9:06 AM EDT) Triglycerides 255(H) <150 mg/dL 08/31/2017 2:27 PM EDT [facility] Cholesterol 258(H) 0 - 200 mg/dL 08/31/2017 2:27 PM EDT [facility] HDL 54 33 - 92 mg/dL 08/31/2017 2:27 PM EDT [facility] LDL (Calculated) 153(H) 50 - 130 mg/dL 08/31/2017 2:27 PM EDT [facility] 08/31/2017 9:06 AM EDT 08/31/2017 9:08 AM EDT Anna Dejesus MD LAB BLOOD ORDERABLES [facility] [address] [facility] (CLIA #[id number]) ([id number]) [place] [address] * (ABNORMAL) Comprehensive Metabolic Panel/Fasting (08/31/2017 9:06 AM EDT) BUN 17 7 - 17 mg/dL 08/31/2017 2:27 PM EDT [facility] Creatinine, Blood 0.6 0.5 - 1.0 mg/dL 08/31/2017 2:27 PM EDT [facility] Glomerular Filtration Rate, Estimated >60.0 >60.0 08/31/2017 2:27 PM EDT [facility] Comment:MDRD in mL/min/1.73 sq meters. For Americans, multiply by 1.21. Sodium 140 135 - 145 mmol/L 08/31/2017 2:27 PM EDT [facility] Potassium 4.2 3.5 - 5.1 mmol/L 08/31/2017 2:27 PM EDT [facility] Chloride 104 98 - 107 mmol/L 08/31/2017 2:27 PM EDT [facility] Carbon dioxide 28 24 - 32 mmol/L 08/31/2017 2:27 PM EDT [facility] Glucose, Fasting 104(H) 70 - 99 mg/dL 08/31/2017 2:27 PM EDT [facility] Calcium 9.4 8.4 - 10.2 mg/dL 08/31/2017 2:27 PM EDT [facility] Total Protein 6.7 6.4 - 8.5 g/dL 08/31/2017 2:27 PM EDT [facility] Albumin 4.2 3.5 - 5.0 g/dL 08/31/2017 2:27 PM EDT [facility] Alkaline Phosphatase 63 34 - 104 U/L 08/31/2017 2:27 PM EDT [facility] AST (SGOT) 20 5 - 40 U/L 08/31/2017 2:27 PM EDT [facility] ALT (SGPT) 26 7 - 52 U/L 08/31/2017 2:27 PM EDT [facility] Total Bilirubin 0.6 0.3 - 1.0 mg/dL 08/31/2017 2:27 PM EDT [facility] 08/31/2017 9:06 AM EDT 08/31/2017 9:08 AM EDT Anna Dejesus MD LAB BLOOD ORDERABLES [facility] [address] [facility] (CLIA #[id number]) ([id number]) [place] [address] documented in this encounter Visit Diagnoses Diagnosis Pure hypercholesterolemia documented in this encounter Care Teams Regional Sales Coordinator Relationship Specialty Start Date End Date Anna Dejesus MD PCP - General Internal Medicine 05/22/15 documented as of this encounter
--- OUTSIDE RECORDS SUMMARY | 2023-11-06 18:31 | XMS_ITS | Encounter Summary ---
Author Organization [facility] Address [address] [place] [address] Care Team Providers Care Claim Review Medical Director Name Role Phone Anna Dejesus MD Primary Care Provider [phone] Encounter Details Date Type Department Care Team Description 06/06/2023 Travel Social History Tobacco Use Types Packs/Day [...] Appointment Department of Radiology and Imaging Services [address] [place] [phone] Dinorah Mas PA-C [address] [place] [phone] 01/18/2024 1:30 PM EDT Appointment Department of Radiology and Imaging Services [address] [place] [phone] Dinorah Mas PA-C [address] [place] [phone] 01/18/2024 2:20 PM EDT Office Visit [facility] Breast [facility] Consul [address] [place] [phone] Dinorah Mas PA-C [facility] [place] [address] Rasta Borjas MD [address] [place] [address] documented as of this encounter Visit Diagnoses Not on filedocumented in this encounter Care Teams Claim Review Medical Director Relationship Specialty Start Date End Date Anna Dejesus MD PCP - General Internal Medicine 05/22/15 documented as of this encounter
--- OUTSIDE RECORDS SUMMARY | 2023-11-06 18:31 | XMS_ITS | Encounter Summary ---
Author Organization [facility] Address [address] [place] [address] Care Team Providers Care Marine Pipefitter Helper Name Role Phone Anna Dejesus MD Primary Care Provider [phone] Encounter Details Date Type Department Care Team Description 12/01/2016 11:03 AM EDT - 12/01/2016 11:59 PM EDT Hospital Encounter Lab Draw Station [address] [phone] Anna Dejesus MD [address] [place] [address] Malignant neoplasm of other specified sites of female breast; Localized superficial swelling, mass, or lump Discharge Disposition: Home or Self Care Social [...] Appointment Department of Radiology and Imaging Services [address] [place] [phone] Dinorah Mas PA-C [address] [place] [phone] 01/18/2024 1:30 PM EDT Appointment Department of Radiology and Imaging Services [address] [place] [phone] Dinorah Mas PA-C [address] [place] [phone] 01/18/2024 2:20 PM EDT Office Visit [facility] Breast [facility]lth Consul [address] [place] [phone] Dinorah Mas PA-C [address] [place] [phone] Rasta Borjas MD [address] [place] [phone] documented as of this encounter Procedures Procedure Name Priority Date/Time Associated Diagnosis Comments BLOOD UREA NITROGEN (BUN) Routine 12/01/2016 11:06 AM EDT Malignant neoplasm of other specified sites of female breast Localized superficial swelling, mass, or lump CREATININE Routine 12/01/2016 11:06 AM EDT Malignant neoplasm of other specified sites of female breast Localized superficial swelling, mass, or lump documented in this encounter Results * Creatinine (12/01/2016 11:06 AM EDT) Creatinine, Blood 0.6 0.5 - 1.0 MG/DL 12/01/2016 3:13 PM EDT [facility] Glomerular Filtration Rate, Estimated >60.0 >60.0 12/01/2016 3:13 PM EDT [facility] Comment:MDRD in mL/min/1.73 sq meters. For Americans, multiply by 1.21. 12/01/2016 11:0 6 AM EDT 12/01/2016 11:07 AM EDT Anna Dejesus MD LAB BLOOD ORDERABLES Performing Organization Address City/[facility] Co de Phone Number [facility] [address] [place] [address] (CLIA #[id number]) [phone]) [place] [address] * Blood Urea Nitrogen (BUN) (12/01/2016 11:06 AM EDT) BUN 16 7 - 17 MG/DL 12/01/2016 3:13 PM EDT [facility] 12/01/2016 11:0 6 AM EDT 12/01/2016 11:07 AM EDT Anna Dejesus MD LAB BLOOD ORDERABLES Performing Organization Address [facility] Co de Phone Number [facility] [address] [place] [address] (CLIA #[id number]) [phone]) [place] [address] documented in this encounter Visit Diagnoses Diagnosis Malignant neoplasm of other specified sites of female breast Localized superficial swelling, mass, or lump documented in this encounter Care Teams Marine Pipefitter Helper Relationship Specialty Start Date End Date Anna Dejesus MD PCP - General Internal Medicine 05/22/15 documented as of this encounter
--- OUTSIDE RECORDS SUMMARY | 2023-11-06 18:31 | XMS_ITS | Encounter Summary ---
Author Organization [facility] Address [address] [place] [address] Care Team Providers Care Talent Acquisition Administrator Name Role Phone Anna Dejesus MD Primary Care Provider [phone] Encounter Details Date Type Department Care Team Description 08/26/2016 8:27 AM EDT - 08/26/2016 11:59 PM EDT Hospital Encounter Lab Draw Station [address] [place] [address] Anna Dejesus MD [address] [place] [address] Chalasia of lower esophageal sphincter; Acute right-sided back pain with sciatica; Malignant neoplasm of other specified sites of female breast; Hypercholesteremia Discharge Disposition: Home or Self Care Social [...] Appointment Department of Radiology and Imaging Services [address] [place], [place] [phone] Dinorah Mas PA-C [address] [place] [phone] 01/18/2024 1:30 PM EDT Appointment Department of Radiology and Imaging Services [address] [place] [phone] Dinorah Mas PA-C [address] [place] [phone] 01/18/2024 2:20 PM EDT Office Visit [facility] Breast [facility]lth Consul [address] [place] [phone] Dinorah Mas PA-C [address] [place] [phone] Rasta Borjas MD [address] [place] [phone] documented as of this encounter Procedures Procedure Name Priority Date/Time Associated Diagnosis Comments COMPREHENSIVE METABOLIC PANEL/FASTING Routine 08/26/2016 8:27 AM EDT Chalasia of lower esophageal sphincter Acute right-sided back pain with sciatica Malignant neoplasm of other specified sites of female breast Hypercholesteremia LIPID PROFILE (PREP L2) Routine 08/26/2016 8:27 AM EDT Chalasia of lower esophageal sphincter Acute right-sided back pain with sciatica Malignant neoplasm of other specified sites of female breast Hypercholesteremia documented in this encounter Results * (ABNORMAL) Lipid Profile (Prep L2) (08/26/2016 8:27 AM EDT) Triglycerides 177(H) <150 MG/DL 08/26/2016 2:50 PM EDT [facility] Cholesterol 182 0 - 200 MG/DL 08/26/2016 2:50 PM EDT [facility] HDL 51 33 - 92 MG/DL 08/26/2016 2:50 PM EDT [facility] LDL (Calculated) 96 50 - 130 mg/dL 08/26/2016 2:50 PM EDT [facility] 08/26/2016 8:27 AM EDT 08/26/2016 8:49 AM EDT Anna Dejesus MD LAB BLOOD ORDERABLES [facility] [address] [facility] (IA #[id number]) ([id number]) [place] [address] * (ABNORMAL) Comprehensive Metabolic Panel/Fasting (08/26/2016 8:27 AM EDT) BUN 21(H) 7 - 17 MG/DL 08/26/2016 2:50 PM EDT [facility] Creatinine, Blood 0.6 0.5 - 1.0 MG/DL 08/26/2016 2:50 PM EDT [facility] Glomerular Filtration Rate, Estimated >60.0 >60.0 08/26/2016 2:50 PM EDT [facility] Comment:MDRD in mL min 1.73 sq meters. For Americans, multiply by 1.21. Sodium 140 135 - 145 MMOL/L 08/26/2016 2:50 PM EDT [facility] Potassium 4.3 3.5 - 5.1 MMOL/L 08/26/2016 2:50 PM EDT [facility] Chloride 106 98 - 107 MMOL/L 08/26/2016 2:50 PM EDT [facility] Carbon dioxide 27 24 - 32 MMOL/L 08/26/2016 2:50 PM EDT [facility] Glucose, Fasting 103(H) 70 - 99 MG/DL 08/26/2016 2:50 PM EDT [facility] Calcium 8.8 8.4 - 10.2 MG/DL 08/26/2016 2:50 PM EDT [facility] Total Protein 6.2(L) 6.4 - 8.5 G/DL 08/26/2016 2:50 PM EDT [facility] Albumin 4.0 3.5 - 5.0 G/DL 08/26/2016 2:50 PM EDT [facility] Alkaline Phosphatase 65 34 - 104 U/L 08/26/2016 2:50 PM EDT [facility] AST (SGOT) 21 5 - 40 U/L 08/26/2016 2:50 PM EDT [facility] ALT (SGPT) 26 7 - 52 U/L 08/26/2016 2:50 PM EDT [facility] Total Bilirubin 0.3 0.3 - 1.0 MG/DL 08/26/2016 2:50 PM EDT [facility] 08/26/2016 8:27 AM EDT 08/26/2016 8:49 AM EDT Anna Dejesus MD LAB BLOOD ORDERABLES [facility] [address] [facility] (CLIA #[id number]) ([id number]) [place] [address] documented in this encounter Visit Diagnoses Diagnosis Chalasia of lower esophageal sphincter Esophageal reflux Acute right-sided back pain with sciatica Malignant neoplasm of other specified sites of female breast Hypercholesteremia Pure hypercholesterolemia documented in this encounter Care Teams Talent Acquisition Administrator Relationship Specialty Start Date End Date Anna Dejesus MD PCP - General Internal Medicine 05/22/15 documented as of this encounter
--- OUTSIDE RECORDS SUMMARY | 2023-11-06 18:31 | XMS_ITS | Encounter Summary ---
Author Organization [facility] Address [address] [place] [address] Care Team Providers Care Quoter Name Role Phone Unavailable Primary Care Provider Unavailabl e Encounter Details Date Type Department Care Team (Late st Contact Info) Description 12/11/2010 8:26 AM EDT - 12/11/2010 11:59 PM EDT Hospital Encounter CONVERSION DEPARTMENT [address] [place] [address] Vinod Martinez MD [address] [place] [phone] Social History Tobacco Use Types Packs/Day Years Used Date Smoking Tobacco: Never Assessed Sex and Gender Information Value Date Recorded Sex Assigned at Not on file Gender Identity Not on file Sexual Orientation Not on file documented as of this encounter Miscellaneous Notes * Op Note - Vinod Martinez MD - 12/11/2010 10:05 PM EDT Final [facility] OUTPATIENT OPERATIVE NOTE NAME: LESTER STEVENS MR#: [id number] OP DATE: 12/11/2010 PREOPERATIVE DIAGNOSIS(ES): Chronic lateral epicondylitis, right elbow. POSTOPERATIVE DIAGNOSIS(ES): Chronic lateral epicondylitis, right elbow. OPERATIVE PROCEDURE: Nirschl type tendon release, right elbow. SURGEON: Vinod Martinez MD. ANESTHESIA: General. MEDICATIONS: A 2 g Ancef. DESCRIPTION OF PROCEDURE: The patient was taken to the operating room where she was given 2 g Ancef intravenously. After induction of general anesthesia, the right upper extremity was prepped with Betadine soap and Betadine solution, and draped in sterile fashion. Incision was made just anterior to the tip of the lateral epicondyle, approximately 4-5 cm incision, dividing the skin and subcutaneous tissue. The interval between the extensor digitorum communis and extensor carpi radialis longus was identified. The muscle fibers in the extensor carpi radialis longus were elevated up off the extensor carpi radialis brevis. Brevis tendon appeared to be a degenerated type tendon and a triangular wedge of the tendon was excised. Rongeur was used to remove any remaining adherent tissue to the lateral epicondyle region. Adequate debridement resection had been performed. The incision was copiously irrigated. The ECRL was then re-approximated to the EDC with 2-0 Vicryl, 2-0 Vicryl was also used to the subcutaneous tissue. Approximately 8 mL of 0.5 percent plain Marcaine was used to anesthetize the area for postoperative pain relief. The skin was closed with a running 3-0 Monocryl subcuticular suture. Steri-Strips were applied. A sterile dressing was applied. A sling was applied. Tourniquet was let down. The patient tolerated the procedure well and was taken to the recovery area in a satisfactory condition. REVIEWED AND APPROVED BY: Vinod Martinez MD CC: [id number] D :TueDec 11 10:37:48 2010 T :TueDec 11 22:05:23 2010 Doc #:[id number] VINOD MARTINEZ MD ELECTRONICALLY SIGNED 12/15/2010 8:08 Final documented in this encounter Plan of Treatment Not on file documented as of this encounter Visit Diagnoses Not on filedocumented in this encounter
--- OUTSIDE RECORDS SUMMARY | 2023-11-06 18:31 | XMS_ITS | Encounter Summary ---
Author Organization [facility] Address [address] [place] [address] Care Team Providers Care Chute Feeder Name Role Phone Anna Dejesus MD Primary Care Provider [phone] Reason for Referral * Preauthorization (Routine) - Closed Specialty Diagnoses / Procedures Referred By Harper phillips Referred To Contact Radiology Diagnoses Encounter for screening for malignant neoplasm of breast, unspecified screening modality Breast pain, left Procedures MRI Breast BI With W/O IV Cont with CAD Anna Dejesus MD [address] [facility] [address] [place] [address] Referral ID Status Reason Start Date Expiration Date Visits Re quested Visits Authorized [id number] Closed 05/24/2023 05/23/2024 1 1 Reason for Visit * Preauthorization (Routine) - Closed Specialty Diagnoses / Procedures Referred By Contadalberto t Referred To Contact Radiology Diagnoses Encounter for screening for malignant neoplasm of breast, unspecified screening modality Breast pain, left Procedures MRI Breast BI With W/O IV Cont with Anna Manley MD [address] [facility] [address] [address] Referral ID Status Reason Start Date Expiration Date Visits Re quested Visits Authorized [id number] Closed 05/24/2023 05/23/2024 1 1 Encounter Details Date Type Department Care Team Description 05/28/2023 11:32 AM EST - 05/28/2023 11:59 PM EST Hospital Encounter Department of Radiology and Imaging Services [address] [place] [phone] Encounter for screening for malignant neoplasm of breast, unspecified screening modality; Breast pain, left Discharge Disposition: Home or Self Care Social [...] Appointment Department of Radiology and Imaging Services [address] [place] [address] Dinorah Mas PA-C [address] [place] [phone] 01/18/2024 1:30 PM EDT Appointment Department of Radiology and Imaging Services [address] [place] [address] Dinorah Mas PA-C [address] [place] [phone] 01/18/2024 2:20 PM EDT Office Visit [facility] Breast Hlth Consul [address] [place] [phone] Dinorah Mas PA-C [address] [place] [address] Rasta Borjas MD [address] [place] [phone] documented as of this encounter Procedures Procedure Name Priority Date/Time Associated Diagnosis Comments MRI BREAST BILATERAL WITH AND WITHOUT IV CONTRAST WITH CAD Routine 05/28/2023 12:40 PM EST Encounter for screening for malignant neoplasm of breast, unspecified screening modality Breast pain, left documented in this encounter Results * MRI Breast BI With W/O IV Cont with CAD (05/28/2023 12:40 PM EST) Anatomical Region Laterality Modality Breast Bilateral Magnetic Resonan ce 05/29/2023 8:13 PM EST Narrative 06/02/2023 10:53 AM EST EXAM: MRI BREAST BILATERAL WITH AND WITHOUT CONTRAST IV CONTRAST WITH CAD EXAM HISTORY: Patient with a history of left breast cancer status post breast conservation surgery. Patient reports left breast pain as indicated by the referring clinician's office. No recent mammograms are available. Encounter for other screening for malignant neoplasm of breast,Mastodynia COMPARISON: Bilateral breast MRI dated 04/28/2021, 04/08/2020 performed at [facility] TECHNIQUE: Technique: Sagittal T1 and T2 weighted images were obtained through each breast. DWI ([id number]) Axial T1-weighted gradient echo sequences were performed before and after administration of gadolinium in multiple phases and subtracted images were obtained. Kinetics analysis was performed using CAD stream software. Multiplanar reformatted images were created and analyzed on a workstation. CONTRAST AGENT: ??14 cc of intravenous clariscan were administered without incident. FINDINGS: There are scattered fibroglandular densities (approximately 25-50% glandular). There is motion artifact resulting in misregistration on the postcontrast sequences. RIGHT BREAST: There is minimal background parenchymal enhancement. No enhancing mass, architectural distortion, or suspicious area of enhancement is identified with Type II or Type III kinetics. The nipple and skin appear normal. There is no axillary adenopathy. LEFT BREAST: There is intimal background parenchymal enhancement. Again seen are postsurgical changes at 12:00. Compared to prior images, there appears to be increased enhancement associated with the surgical scar just above the nipple at 12:00. This enhancement measures 1.4 x 1.7 cm. No associated suspicious kinetics. There is no other abnormal enhancement within the left breast. The nipple and skin appear normal. There is no axillary adenopathy. The imaged portions of the chest and abdomen are unremarkable. IMPRESSION: Right Breast: BI-RADS Category 2. Benign. No enhancing mass, architectural distortion, or suspicious area of enhancement. Left Breast: BI-RADS Category 4. Suspicious abnormality. Increased enhancement associated with the surgical scar just above the nipple at 12:00 compared to prior available images. Given the misregistration artifact on the postcontrast sequences, it is possible this enhancement may be artifactual. RECOMMENDATION: Consider focused ultrasound of the upper left breast at 12:00 at the surgical scar for further evaluation. Correlation with mammography would be helpful. A follow-up bilateral breast MRI is recommended in 6 months if no suspicious abnormality is identified on ultrasound or mammography to correlate with the enhancement. Report reviewed and signed by : Dr. Parisa Lorenz MD on 06/02/2023 10:53 AM. Workstation Name - [id number] Anna Dejesus MD IMG MRI ORDERABLES documented in this encounter Visit Diagnoses Diagnosis Encounter for screening for malignant neoplasm of breast, unspecified screening modality Breast pain, left documented in this encounter Administered Medications Inactive Administered Medications - up to 3 most recent administrations Medication Order MAR Action Action Date Dose Rate Site gadoterate meglumine (CLARISCAN) injection 7.5 mmol/15 mL 14 mL, Intravenous, IMG once as needed, contrast, Starting on 05/28/23 at 1341, For 1 dose, Radiology Contrast, Lot #: [id number] dec 07 2025 [id number] Given 05/28/2023 1:42 PM EST 14 mL Right Arm documented in this encounter Care Teams Chute Feeder Relationship Specialty Start Date End Date Anna Dejesus MD PCP - General Internal Medicine 05/22/15 documented as of this encounter
--- OUTSIDE RECORDS SUMMARY | 2023-11-06 18:31 | XMS_ITS | Encounter Summary ---
Author Organization [facility] Address [address] [place] [address] Care Team Providers Care Machinery Erector Name Role Phone Unavailable Primary Care Provider Unavailabl e Encounter Details Date Type Department Care Team Description 04/09/2014 10:07 AM EST - 04/09/2014 11:59 PM EST Hospital Encounter Lab Draw Station [address] [place] [address] Anna Dejesus MD [address] [address] Pure hypercholesterolemi a; Malignant neoplasm of breast (female), unspecified site; Esophageal reflux Discharge Disposition: Home or Self Care Social [...] Appointment Department of Radiology and Imaging Services [address] [place], [place] [phone] Dinorah Mas PA-C [address] [place], [place] [phone] 01/18/2024 1:30 PM EDT Appointment Department of Radiology and Imaging Services [address] [place], [place] [phone] Dinorah Mas PA-C [address] [place] [address] 01/18/2024 2:20 PM EDT Office Visit [facility] Breast Hlth Consul [address] [place] [address] Dinorah Mas PA-C [address] [place] [address] Rasta Borjas MD [address] [place] [phone] documented as of this encounter Procedures Procedure Name Priority Date/Time Associated Diagnosis Comments COMPREHENSIVE METABOLIC PANEL/FASTING Routine 04/09/2014 10:07 AM EST Pure hypercholesterolemi a Malignant neoplasm of breast (female), unspecified site Esophageal reflux LIPID PROFILE (PREP L2) Routine 04/09/2014 10:07 AM EST Pure hypercholesterolemi a Malignant neoplasm of breast (female), unspecified site Esophageal reflux documented in this encounter Results * (ABNORMAL) Lipid Profile (Prep L2) (04/09/2014 10:07 AM EST) Triglycerides 156(H) <150 MG/DL 04/09/2014 2:06 PM EST [facility] Cholesterol 157 0 - 200 MG/DL 04/09/2014 2:06 PM EST [facility] HDL 44 33 - 92 MG/DL 04/09/2014 2:06 PM EST [facility] LDL (Calculated) 82 50 - 130 MG/DL 04/09/2014 2:06 PM EST [facility] 04/09/2014 10:0 7 AM EST 04/09/2014 11:39 AM EST Anna Dejesus MD LAB BLOOD ORDERABLES [facility] [address] [place] [address] (CLIA #[id number]) ([id number]) [place] [address] * (ABNORMAL) Comprehensive Metabolic Panel/Fasting (04/09/2014 10:07 AM EST) BUN 13 7 - 17 MG/DL 04/09/2014 2:06 PM [facility] Creatinine, Blood 0.7 0.5 - 1.0 MG/DL 04/09/2014 2:06 PM [facility] Glomerular Filtration Rate, Estimated >60.0 04/09/2014 2:06 PM [facility] Comment:MDRD in mL min 1.73 sq meters. For Americans, multiply by 1.21. Sodium 141 135 - 145 MMOL/L 04/09/2014 2:06 PM [facility] Potassium 4.5 3.5 - 5.1 MMOL/L 04/09/2014 2:06 PM [facility] Chloride 105 98 - 107 MMOL/L 04/09/2014 2:06 PM [facility] Carbon dioxide 32 24 - 32 MMOL/L 04/09/2014 2:06 PM [facility] Glucose, Fasting 105(H) 70 - 99 MG/DL 04/09/2014 2:06 PM [facility] Calcium 8.6 8.4 - 10.2 MG/DL 04/09/2014 2:06 PM [facility] Total Protein 6.0(L) 6.3 - 8.2 G/DL 04/09/2014 2:06 PM [facility] Albumin 3.8 3.5 - 5.0 G/DL 04/09/2014 2:06 PM [facility] Alkaline Phosphatase 48 34 - 104 U/L 04/09/2014 2:06 PM [facility] AST (SGOT) 20 5 - 40 U/L 04/09/2014 2:06 PM [facility] ALT (SGPT) 25 7 - 52 U/L 04/09/2014 2:06 PM [facility] Total Bilirubin 0.3 0.3 - 1.0 MG/DL 04/09/2014 2:06 PM [facility] 04/09/2014 10:0 7 AM EST 04/09/2014 11:39 AM EST Anna Dejesus MD LAB BLOOD ORDERABLES [facility] [address] [facility] (CLIA #[id number]) ([id number]) [place] [address] documented in this encounter Visit Diagnoses Diagnosis Pure hypercholesterolemia Malignant neoplasm of breast (female), unspecified site Esophageal reflux documented in this encounter
--- OUTSIDE RECORDS SUMMARY | 2023-11-06 18:31 | XMS_ITS | Clinical Summary ---
Author Organization [facility] Address [address] [place] [address] Care Team Providers Care Washing Tub Operator Name Role Phone Unavailable Primary Care Provider Unavailabl e Social History Tobacco Use Types Packs/Day Years Used Date Smoking Tobacco: Never Assessed Sex and Gender Information Value Date Recorded Sex Assigned at Not on file Gender Identity Not on file Sexual Orientation Not on file Plan of Treatment Health Maintenance Due Date Last Done Comments DTaP/Tdap/Td Vaccines (1 - Tdap) 07/07/1959 Zoster (Shingles) Vaccine (1 of 2) 1990 RSV Vaccine 60 years and old er and Patients (1 - 1-dose 60+ series) 2000 Pneumococcal Vaccines 65+ (1 of 1 - PCV) 2005 COVID-19 Vaccine ( - 2022-2 4 season) 2022 Hepatitis B Vaccines Aged Out No long er eligible based on patient's age to complete this topic
--- OUTSIDE RECORDS SUMMARY | 2023-11-06 18:31 | XMS_ITS | Encounter Summary ---
Author Organization [facility] Address [address] [place] [address] Care Team Providers Care Preflight Inspector Name Role Phone Anna Dejesus MD Primary Care Provider [phone] Encounter Details Date Type Department Care Team Description 05/29/2015 9:12 AM EST - 05/29/2015 11:59 PM EST Hospital Encounter Lab Draw Station [address] [place] [address] Anna Dejesus MD [address] [address] Pure hypercholesterolemia Discharge Disposition: Home or Self [...] Appointment Department of Radiology and Imaging Services [address] [place], [place] [phone] Dinorah Mas PA-C [address] [place] [phone] 01/18/2024 1:30 PM EDT Appointment Department of Radiology and Imaging Services [address] [place], [place] [phone] Dinorah Mas PA-C [address] [place] [phone] 01/18/2024 2:20 PM EDT Office Visit [facility] Breast [facility] Consul [address] [place] [address] Dinorah Mas PA-C [address] [place] [address] Rasta Borjas MD [address] [place] [phone] documented as of this encounter Procedures Procedure Name Priority Date/Time Associated Diagnosis Comments COMPREHENSIVE METABOLIC PANEL/FASTING Routine 05/29/2015 9:12 AM EST Pure hypercholesterolemia LIPID PROFILE (PREP L2) Routine 05/29/2015 9:12 AM EST Pure hypercholesterolemia documented in this encounter Results * Lipid Profile (Prep L2) (05/29/2015 9:12 AM EST) Triglycerides 110 <150 MG/DL 05/29/2015 2:32 PM EST [facility] Cholesterol 145 0 - 200 MG/DL 05/29/2015 2:32 PM EST [facility] HDL 58 33 - 92 MG/DL 05/29/2015 2:32 PM EST [facility] LDL (Calculated) 65 50 - 130 MG/DL 05/29/2015 2:32 PM EST [facility] 05/29/2015 9:12 AM EST 05/29/2015 9:13 AM EST Anna Dejesus MD LAB BLOOD ORDERABLES [facility] [address] [facility] (CLIA #[id number]) ([id number]) [place] [address] * (ABNORMAL) Comprehensive Metabolic Panel/Fasting (05/29/2015 9:12 AM EST) BUN 16 7 - 17 MG/DL 05/29/2015 2:32 PM [facility] Creatinine, Blood 0.7 0.5 - 1.0 MG/DL 05/29/2015 2:32 PM [facility] Glomerular Filtration Rate, Estimated >60.0 >60.0 05/29/2015 2:32 PM [facility] Comment:MDRD in mL min 1.73 sq meters. For Americans, multiply by 1.21. Sodium 139 135 - 145 MMOL/L 05/29/2015 2:32 PM EST [facility] Potassium 4.2 3.5 - 5.1 MMOL/L 05/29/2015 2:32 PM [facility] Chloride 104 98 - 107 MMOL/L 05/29/2015 2:32 PM [facility] Carbon dioxide 30 24 - 32 MMOL/L 05/29/2015 2:32 PM [facility] Glucose, Fasting 96 70 - 99 MG/DL 05/29/2015 2:32 PM [facility] Calcium 8.8 8.4 - 10.2 MG/DL 05/29/2015 2:32 PM [facility] Total Protein 6.3(L) 6.4 - 8.5 G/DL 05/29/2015 2:32 PM [facility] Comment:New Reference Range Albumin 4.1 3.5 - 5.0 G/DL 05/29/2015 2:32 PM [facility] Alkaline Phosphatase 47 34 - 104 U/L 05/29/2015 2:32 PM [facility] AST (SGOT) 24 5 - 40 U/L 05/29/2015 2:32 PM [facility] ALT (SGPT) 28 7 - 52 U/L 05/29/2015 2:32 PM [facility] Total Bilirubin 0.3 0.3 - 1.0 MG/DL 05/29/2015 2:32 PM [facility] 05/29/2015 9:12 AM EST 05/29/2015 9:13 AM EST Anna Dejesus MD LAB BLOOD ORDERABLES [facility] [address] [place] [address] (CLIA #[id number]) ([id number]) [place] [address] documented in this encounter Visit Diagnoses Diagnosis Pure hypercholesterolemia documented in this encounter Care Teams Preflight Inspector Relationship Specialty Start Date End Date Anna eDjesus MD PCP - General Internal Medicine 05/22/15 documented as of this encounter
[2023-11-06] MEDS: Cephalexin 500 MG CAP, 4 CAPS/BTL PO (18:36)
--- NOTE | 2023-11-08 17:11 | ED.GENADUL_ITS ---
Discharge Plan Disposition Patient Disposition: Home Condition: Stable Discharge Details Clinical Impression: Acute UTI Primary Care Provider: Patience,Local ED Provider: Neetu Dee Home Meds and New Rx's Prescriptions: New cephalexin 500 mg capsule 500 mg PO Q6H 7 Days Qty: 28 0RF Continued omeprazole 20 mg capsule,delayed release(DR/EC) 20 mg PO DAILY Discharge Instructions Instructions: Urinary Tract Infection, Adult ED Additional Instructions: Take Keflex as prescribed for 7 days Yogurt daily while taking antibiotic With fever, chills, worsening pain, back pain, please return immediately for reassessment Discharge Data Discharge Date/Time-TO BE ENTERED AT DEPARTURE: 11/06/23 18:37 HPI General Date/Time Provider Initiated Documentation: 11/06/23 17:25 . HPI Narrative: This 83-year-old female presents with dysuria and frequency and intermittent for the past 2 weeks. Patient denies chest pain, shortness of breath, dizziness, weakness, flank pain. She denies any nausea or vomiting. She otherwise feels quite well and is visiting from [place] per patient. Denies blood in her urine. Related Data Home Medications ?Medication ?Instructions ?Recorded ?Confirmed cephalexin 500 mg capsule 500 mg PO Q6H 7 days #28 caps 11/06/23 omeprazole 20 mg capsule,delayed 20 mg PO DAILY 11/06/23 11/06/23 release Previous Rx's ?Medication ?Instructions ?Recorded cephalexin 500 mg capsule 500 mg PO Q6H 7 days #28 caps 11/06/23 Allergies Allergy/AdvReac Type Severity Reaction Status Date / Time Penicillins AdvReac Mild unknown Verified 11/06/23 17:36 General Stated Complaint: Urinary CRYSTAL: 4 Exam Narrative Exam Narrative: Alert and oriented 83-year-old female in no acute distress. No CVA tenderness, cardiac rate rhythm regular, no abdominal tenderness appreciated. Course Vital Signs Vital signs: Vital Signs Temperature 36.8 C 11/06/23 17:30 Pulse 88 11/06/23 17:30 Respiratory Rate 16 11/06/23 17:30 Blood Pressure 162/67 H 11/06/23 17:30 Pulse Oximetry 94 11/06/23 17:30 Temperature 36.8 C 11/06/23 17:30 Temperature Source Temporal Artery Scan 11/06/23 17:30 Pulse 88 11/06/23 17:30 Respiratory Rate 16 11/06/23 17:30 Respiratory Effort Normal, Non-Labored 11/06/23 17:34 Blood Pressure 162/67 H 11/06/23 17:30 Blood Pressure Position Sitting 11/06/23 17:30 Pulse Oximetry 94 11/06/23 17:30 Oxygen Delivery Method Room Air 11/06/23 17:30 Oxygen Flow Rate 0 11/06/23 17:30 Pain Level 0 11/06/23 17:30 Lab/Test Results Lab/Test Results: 11/06/23 17:24 Urine - Reflex from Ua Urine Culture - Final Escherichia coli Laboratory Tests Range/Units 11/06/23 17:24 Urine Color (Yellow) Yellow Urine Clarity (Clear) Cloudy Urine pH (5-8) 5.5 Ur Specific Rattan (1.005-1.025) >= 1.030 H Urine Protein (Neg-Trace) mg/dL 100 H Urine Ketones (Negative) mg/dL Negative Urine Blood (Negative) Large H Urine Nitrite (Negative) Negative Urine Bilirubin (Negative) Negative Urine Urobilinogen (Up to 0.2) mg/dL 0.2 Ur Leukocyte Esterase (Negative) Moderate H Urine RBC (0-2) HPF >50 H Urine WBC (0-5) HPF >50 H Ur Epithelial Cells Not Applicable Urine Crystals Not Applicable Urine Bacteria Not Applicable Urine Mucus Not Applicable Ur Culture Indicated? Yes Urine Glucose (Negative) mg/dL Negative Medical Decision Making 83-year-old female presenting with urinary symptoms, urine concerning for UTI. Pending culture will treat with Keflex empirically for 7 days. No signs of systemic illness fully alert and oriented female. Return precautions reviewed and patient expressed understanding. Quality:SDOH Health Related Social Needs: No Data to Display PFSH All Active Problems (Updated 11/06/23 @ 18:07 by SUMANTH Solorzano) Acute UTI (Acute) Social History Smoking/Tobacco Use Status: Never Smoking risk assessment performed?: Yes Alcohol Intake: current Alcohol Intake frequency: a few times a week Drug use: Never Substance use type: does not use Do you feel safe at home: Yes Do you feel safe in your relationship?: Yes
== END 2023-11-06 18:37 | disposition home or self-care (01) ==
LOC: ER 18:29
PROVIDERS: Emergency Medicine; Emergency Provider Physician Assistant
DX: N39.0 Urinary tract infection, site not specified (principal); B96.20 Unspecified Escherichia coli [E. coli] as the cause of diseases classified elsewhere
CPT/HCPCS: 87077; 99283; 81003; 81015; 87086; 87186